=== PATIENT | male | born 1945 | race Caucasian/White ===

== ENCOUNTER → 2016-10-29 | Outpatient (REF) | payer OTHER ==
[2016-10-29 21:00] LABS: ALBUMIN 3.5 GM/DL (3.2-5.2); ALBUMIN/GLOBULIN RATIO 1.03 (1.00-1.93); ALKALINE PHOSPHATASE 56 U/L (45-117); ALT/SGPT 25 U/L (12-78); ANION GAP 7 MEQ/L (8-16); AST/SGOT 15 U/L (15-37); BILIRUBIN,TOTAL 0.4 MG/DL (0.2-1.0); BLOOD UREA NITROGEN 23 MG/DL (7-18); CALCIUM LEVEL 8.9 MG/DL (8.8-10.2); CARBON DIOXIDE LEVEL 30 MEQ/L (21-32); CHLORIDE LEVEL 108 MEQ/L (98-107); CREATININE FOR GFR 0.79 MG/DL (0.70-1.30); GLOMERULAR FILTRATION RATE > 60.0 (>42); GLUCOSE, FASTING 93 MG/DL (83-110); POTASSIUM SERUM 4.1 MEQ/L (3.5-5.1); SODIUM LEVEL 145 MEQ/L (136-145); TOTAL PROTEIN 6.9 GM/DL (6.4-8.2)
[2016-10-29 21:07] LABS: VITAMIN B12 LEVEL 400 PG/ML
[2016-10-29 21:10] LABS: MEAN CORPUSCULAR HEMOGLOBIN 32.3 pg (27.0-33.0); MEAN CORPUSCULAR HGB CONC 32.8 g/dl (32.0-36.5); MEAN CORPUSCULAR VOLUME 98.4 fl (80.0-96.0); RED CELL DISTRIBUTION WIDTH 12.6 % (11.5-14.5); WHITE BLOOD COUNT 4.6 K/mm3 (4.0-10.0)
[2016-10-29 21:12] LABS: FOLATE > 24.0 NG/ML
== END ==
LOC: M SFHCADAM 14:21
PROVIDERS: ATTEND Physician Assistant
DX: F03.91 Unspecified dementia, unspecified severity, with behavioral disturbance (principal); R63.4 Abnormal weight loss; E55.9 Vitamin D deficiency, unspecified; E53.8 Deficiency of other specified B group vitamins
CPT/HCPCS: 80053; 82306; 82607; 82746; 85027; G0463

== ENCOUNTER → 2018-01-10 | Outpatient (REF) | payer OTHER ==
[2018-01-10 16:00] LABS: HEMATOCRIT 38.6 % (42.0-52.0); HEMOGLOBIN 12.7 g/dl (13.5-17.5); MEAN CORPUSCULAR HEMOGLOBIN 32.2 pg (27.0-33.0); MEAN CORPUSCULAR HGB CONC 32.9 g/dl (32.0-36.5); MEAN CORPUSCULAR VOLUME 97.7 fl (80.0-96.0); PLATELET COUNT, AUTOMATED 211 10^3/uL (150-450); RED BLOOD COUNT 3.95 10^6/uL (4.30-6.10); RED CELL DISTRIBUTION WIDTH 12.4 % (11.5-14.5); WHITE BLOOD COUNT 5.6 10^3/uL (4.0-10.0)
[2018-01-10 16:06] LABS: ALBUMIN 3.4 GM/DL (3.2-5.2); ALBUMIN/GLOBULIN RATIO 1.06 (1.00-1.93); ALKALINE PHOSPHATASE 71 U/L (45-117); ALT/SGPT 29 U/L (12-78); ANION GAP 3 MEQ/L (8-16); AST/SGOT 50 U/L (7-37); BILIRUBIN,TOTAL 0.4 MG/DL (0.2-1.0); BLOOD UREA NITROGEN 20 MG/DL (7-18); CALCIUM LEVEL 8.8 MG/DL (8.8-10.2); CARBON DIOXIDE LEVEL 33 MEQ/L (21-32); CHLORIDE LEVEL 102 MEQ/L (98-107); CREATININE FOR GFR 1.09 MG/DL (0.70-1.30); FERRITIN 402 NG/ML (26-388); GLOMERULAR FILTRATION RATE > 60.0 (>42); GLUCOSE, FASTING 84 MG/DL (70-100); IRON (FE) 61 UG/DL (65-175); PERCENT SATURATION 29.5 % (19.7-50.0); POTASSIUM SERUM 4.6 MEQ/L (3.5-5.1); SODIUM LEVEL 138 MEQ/L (136-145); TOTAL IRON BINDING CAPACITY 207 UG/DL (250-450); TOTAL PROTEIN 6.6 GM/DL (6.4-8.2)
== END ==
LOC: M SFHCADAM 13:32
DX: D64.9 Anemia, unspecified (principal)
CPT/HCPCS: 83550

== ENCOUNTER 2018-06-01 11:52 | Inpatient (IN) | payer MEDICARE, OTHER ==
[~2018-06-01] VITALS: Ht 180.3 cm; Wt 58.0 kg
[2018-06-01] MEDS ORDERED: LORazepam 2 MG/ML VIAL (J2060) IV STA (13:08)
[2018-06-01 13:38] LABS: BASO % 0.1 % (0.0-1.0); EOS % 0.2 % (0.0-3.0); HEMATOCRIT 36.2 % (42.0-52.0); HEMOGLOBIN 11.8 g/dl (13.5-17.5); MEAN CORPUSCULAR HEMOGLOBIN 32.3 pg (27.0-33.0); MEAN CORPUSCULAR HGB CONC 32.6 g/dl (32.0-36.5); MEAN CORPUSCULAR VOLUME 99.2 fl (80.0-96.0); MONO # 0.9 10^3/uL (0.0-0.8); MONO % 5.6 % (0.0-5.0); NEUTROPHILS # 14.6 10^3/uL (1.8-7.7); NEUTROPHILS % 87.6 % (36.0-66.0); PLATELET COUNT, AUTOMATED 214 10^3/uL (150-450); RED BLOOD COUNT 3.65 10^6/uL (4.30-6.10); WHITE BLOOD COUNT 16.7 10^3/uL (4.0-10.0)
[2018-06-01 13:57] LABS: BLOOD UREA NITROGEN 22 MG/DL (7-18); CALCIUM LEVEL 7.9 MG/DL (8.8-10.2); CARBON DIOXIDE LEVEL 29 MEQ/L (21-32); CHLORIDE LEVEL 114 MEQ/L (98-107); CREATININE FOR GFR 0.88 MG/DL (0.70-1.30); GLOMERULAR FILTRATION RATE > 60.0 (>42); GLUCOSE, FASTING 132 MG/DL (70-100); SODIUM LEVEL 147 MEQ/L (136-145)
--- NOTE | 2018-06-01 14:07 | REP ---
CT of the brain without IV contrast: Comparison is 10/07/2014. There is no hemorrhage. There is no edema, mass effect or midline shift. The cortical stripe is unremarkable. The sulci and ventricles are dilated compatible with diffuse volume loss. This has progressed. There are mucosal cyst/polyps in the left maxillary sinus. Impression: There is no hemorrhage, acute infarct or mass. There is diffuse volume loss that has progressed. Cysts/polyps left maxillary sinus. Electronically Signed by Fran Aponte MD 06/01/2018 01:58 P
--- NOTE | 2018-06-01 14:09 | REP ---
Portable chest, 01:27 p.m., single AP supine view: Comparison is 08/21/2014. There is a subtle density in the left upper lobes , possibly a subsegmental infiltrate. The cardiac size is normal. The michelle, mediastinum, and skeletal structures are unremarkable. Impression: Probable subtle left upper lobe infiltrate. Electronically Signed by Fran Aponte MD 06/01/2018 02:01 P
--- NOTE | 2018-06-01 14:24 | REP ---
Right lower extremity deep vein duplex ultrasound: Deep vein duplex ultrasound performed for a popliteal vein to the common femoral vein. There is occlusive thrombus in the popliteal vein extending to the mid femoral vein. Impression: Occlusive thrombus as described. Electronically Signed by Fran Aponte MD 06/01/2018 02:16 P
[2018-06-01] MEDS ORDERED: cefTRIAXone SOD 2 GM in D5W MINI-BAG PLUS 50 ML IV ONE (14:30)
[2018-06-01] MEDS ORDERED: D-101000 PO (14:50)
[2018-06-01] MEDS ORDERED: MULTTAB61 PO (14:50)
[2018-06-01 14:52] LABS: INR 1.25; PROTHROMBIN TIME 15.9 SECONDS (12.1-14.4)
[2018-06-01 14:53] LABS: PARTIAL THROMBOPLASTIN TIME 35.2 SECONDS (25.4-37.6)
--- NOTE | 2018-06-01 15:02 | REP ---
CT of the chest without IV contrast: Comparison is the portable plain film study performed earlier today. There is an infiltrate in the superior segment of the left upper lobe. There are multifocal infiltrates in the right lower lobe. No pleural effusions. Lung crisostomo otherwise clear. There is no mediastinal adenopathy. The study is insensitive for hilar adenopathy in the absence of IV contrast. Thoracic aorta is unremarkable. Cardiac size normal. In the visualized upper abdomen. There are multiple gallbladder calculi. Impression: Bilateral infiltrates as described. Cholelithiasis. Electronically Signed by Fran Aponte MD 06/01/2018 02:54 P
[2018-06-01] MEDS ORDERED: APIXABAN 5 MG TAB (ELIQUIS) PO ONE (15:45)
--- NOTE | 2018-06-01 16:06 | ECGEPIP ---
Stationary ECG Study [facility] - ED Test Date: 2018-06-01 Pat Name: GANGA MON Department: Room: - Gender: M Industrial Eng: : 1945 Requested By: Pipo Reynoso Order Number: [id number] Reading MD: Earl Arora Measurements Intervals [place] Rate: 84 P: 69 [place]: 141 QRS: 55 QRSD: 77 T: 64 QT: 377 QTc: 448 Interpretive Statements SINUS RHYTHM Similar to tracing done 08-21-14 Electronically Signed On 06-01-2018 16:06:01 EDT by Earl Arora
[2018-06-01 16:15] VITALS: BP 127/67
[2018-06-01] MEDS ORDERED: ACETAMINOPHEN 650 MG SUPP PR ONE (16:15)
[2018-06-01] MEDS: NS 1,000 ML IV SCH (16:30)
--- NOTE | 2018-06-01 16:55 | HPEPDOC ---
General Date of Admission Jun 01, 2018 at 16:13 Chief Complaint The patient is a 73-year-old male who presented to the ER after they were sent in from PMDs office for agitation History of Present Illness Patient is a 73-year-old male with a PMHx of Progressive Dementia (Follows Neurology), HTN, BPH, Hx of Diverticulosis and Bladder Diverticulum who presented to the ER from their PMDs office because of worsening agitation. Patient is nonverbal at baseline and cannot contribute to his history. Patient initially came in with his caregiver was also the healthcare proxy, Vicky ([phone]). Vicky is a denominational member an acquaintance of the patient, however, she is unrelated to the patient. As per reports, patient generally is able to follow commands is nonverbal at baseline and is taken care of by Vicky. Vicky is noted that the patient has become increasingly agitated and has failed to follow commands. . She had gone to the primary care providers office for further evaluation and was directed to come to the emergency room. In the ER, patient received extensive imaging that revealed that he had a left lower extremity DVT as well as bilateral infiltrates on his CT scan of the chest. Patient was also noted to have a fever of 101.8F in the emergency room. Rectal Tylenol was provided. Hospitalist service was called for further evaluation and treatment. Information was mostly gathered from the medical record. Attempts were made to contact Vicky by phone was not present at the bedside. Home Medications Scheduled Cholecalciferol (Vitamin D3) (Vitamin D3) 1,000 Unit Capsule, 1,000 UNIT PO DAILY, (Reported) Multivitamin (Multivitamins) 1 Each Tablet, 1 TAB PO DAILY, (Reported) Allergies Coded Allergies: No Known Allergies (Unverified , 06/01/18) Past Medical History Medical History Progressive Dementia (Follows Neurology), HTN, BPH, Hx of Diverticulosis and Bladder Diverticulum Surgical History Rotator cuff tear on the right side in 2005 Colonoscopy in 2009 Reduction and internal fixation of left wrist fracture in the Left knee surgery in 1999 Family History - Unable to be obtained Social History - Based on medical records; patient is a nonsmoker and has not consumed alcohol in the last 2 years - Based on prior medical records; patient does not appear to be sexually active - Patient lives with healthcare proxy. Vicky - He is from his Review of Systems Other systems - Unable to be obtained Vital Signs - Vitals: BP 127/58, HR 82, RR 20, Sat 94%RA, Temp 101.8F - General: Lying in bed, does not appear to be in any distress, nonverbal, responds to painful stimuli - HEENT: NC, AT, Pupils reactive - CVS: RRR, +S1S2 - Lungs: Poor inspiratory effort bilaterally; discernible wheezing, rhonchi or rales - Abdomen: Soft, Non-distended, Non-tender - Extremities: R lower extremity swelling, No calf tenderness - Neuro: Appears to move all 4 extremities - Skin: There is an area of redness around the sacrum, however, it is blanchable; several areas on the patients body with scabs and multiple stages of healing Laboratory Data Labs 24H Laboratory Tests 2 06/01/18 13:17: Prothrombin Time 15.9H, Prothromb Time International Ratio 1.25, Activated Partial Thromboplast Time 35.2 06/01/18 13:22: Immature Granulocyte % (Auto) 0.5, White Blood Count 16.7H, Red Blood Count 3.65L, Hemoglobin 11.8L, Hematocrit 36.2L, Mean Corpuscular Volume 99.2H, Mean Corpuscular Hemoglobin 32.3, Mean Corpuscular Hemoglobin Concent 32.6, Red Cell Distribution Width 12.5, Platelet Count 214, Neutrophils (%) (Auto) 87.6H, Lymphocytes (%) (Auto) 6.0L, Monocytes (%) (Auto) 5.6H, Eosinophils (%) (Auto) 0.2, Basophils (%) (Auto) 0.1, Neutrophils # (Auto) 14.6H, Lymphocytes # (Auto) 1.0L, Monocytes # (Auto) 0.9H, Eosinophils # (Auto) 0.0, Basophils # (Auto) 0.0, Nucleated Red Blood Cells % (auto) 0.0, Anion Gap 4L, Glomerular Filtration Rate > 60.0, Lactic Acid Level 1.2, Calcium Level 7.9L 06/01/18 15:10: CBC/BMP Laboratory Tests 06/01/18 13:22 Red Blood Count 3.65 L, Mean Corpuscular Volume 99.2 H, Mean Corpuscular Hemoglobin 32.3, Mean Corpuscular Hemoglobin Concent 32.6, Red Cell Distribution Width 12.5, Neutrophils (%) (Auto) 87.6 H, Lymphocytes (%) (Auto) 6.0 L, Monocytes (%) (Auto) 5.6 H, Eosinophils (%) (Auto) 0.2, Basophils (%) (Auto) 0.1, Neutrophils # (Auto) 14.6 H, Lymphocytes # (Auto) 1.0 L, Monocytes # (Auto) 0.9 H, Eosinophils # (Auto) 0.0, Basophils # (Auto) 0.0 Microbiology Microbiology 06/01/18 Blood Culture, Received Pending 06/01/18 Blood Culture, Received Pending Plan / VTE VTE Prophylaxis Ordered?: Yes Plan Plan Acute metabolic encephalopathy - possibly 2/2 infection (See below); - Patient is brought to emergency room for agitation, which is changed from his baseline - Likely patients underlying dementia has had a component - Patient is only responsive to pain; appears to move all 4 extremities - CT head 06/01: There is no hemorrhage, acute infarct or mass. There is diffuse volume loss that has progressed. Cysts/polyps left maxillary sinus. - Will hold Seroquel / Aricept until patient is more awake / alert Leukocytosis / Fever - likely 2/2 infectious etiology - likely 2/2 pneumonia - possibly 2/2 community acquired pneumonia; possibly overlying cellulitis over R lower extremity - Patient was found to be febrile emergency room at 101.8F - Remains hemodynamically stable - Leukocytosis with neutrophil predominance; No lactic acidosis - will repeat - CXR 06/01: Probable subtle left upper lobe infiltrate. - CT chest 06/01: Bilateral infiltrates as described. Cholelithiasis. - Will start Ceftaroline (re: Coverage for MRSA / CAP / SSTI); will start IV fluid hydration Acute DVT - Physical with swelling of the right lower extremity - Hyper-coaguability workup has been started in the ER - Duplex US 06/01: There is occlusive thrombus in the right popliteal vein extending to the mid femoral vein. - Patient doesnt appear to be able to take anything by mouth at this point - Will start Lovenox therapeutic dosing by weight Hypernatremia - likely 2/2 poor oral intake - Will start IV fluid hydration with NS Macrocytic anemia - Hg appears to be at baseline - Will continue to monitor Cholelithiasis - Physical does not reveal any abdominal tenderness - Incidentally found on imaging - Will check liver profile Progressive Dementia - Follows Neurology - See above HTN - BP appears well controlled - Does not appear to be on any medications as an outpatient BPH - Does not appear to be on any medications as an outpatient Hx of Diverticulosis Bladder Diverticulum DVT prophylaxis - Will start full anticoagulation with Lovenox (re: DVT) Advanced Directives: Do Not Resuscitate (DNR) (Verified with Dr. Krueger), Trial form of Intubation (Verified with Dr. Krueger), Health Care Proxy (HCP) ([facility] [phone]) FAREED CHÁVEZ MD Jun 01, 2018 16:55
[2018-06-01] MEDS: ENOXAPARIN 60 MG/0.6 ML SYR (J1650) SC SCH (17:00)
[2018-06-01 17:16] LABS: ALBUMIN 2.4 GM/DL (3.2-5.2); ALT/SGPT 34 U/L (12-78); BILIRUBIN,DIRECT 0.1 MG/DL (0.0-0.2); BILIRUBIN,TOTAL 0.3 MG/DL (0.2-1.0); TOTAL PROTEIN 5.8 GM/DL (6.4-8.2)
[2018-06-01 18:15] VITALS: BP 127/67
[2018-06-01] MEDS: CEFTAROLINE FOSAMIL 600 MG in D5W MINI-BAG PLUS 50 ML IV SCH (22:13)
[2018-06-01 22:15] VITALS: BP 114/53
[2018-06-01] MEDS: ACETAMINOPHEN 650 MG SUPP PR PRN (22:39)
[2018-06-01 23:15] VITALS: BP 119/58
[2018-06-02] VITALS (8 sets, daily range): BP systolic 104–154; BP diastolic 53–85
[2018-06-02] MEDS: NS 1,000 ML IV SCH (04:38)
[2018-06-02] MEDS: ENOXAPARIN 60 MG/0.6 ML SYR (J1650) SC SCH ×2 (04:38→17:17)
[2018-06-02 06:42] LABS: BASO % 0.1 % (0.0-1.0); EOS % 0.1 % (0.0-3.0); HEMATOCRIT 37.8 % (42.0-52.0); HEMOGLOBIN 12.1 g/dl (13.5-17.5); LYMPH # 1.1 10^3/uL (1.5-4.5); LYMPH % 6.3 % (24.0-44.0); MEAN CORPUSCULAR HEMOGLOBIN 32.4 pg (27.0-33.0); MEAN CORPUSCULAR VOLUME 101.3 fl (80.0-96.0); MONO % 6.1 % (0.0-5.0); NEUTROPHILS # 14.6 10^3/uL (1.8-7.7); NEUTROPHILS % 86.9 % (36.0-66.0); PLATELET COUNT, AUTOMATED 215 10^3/uL (150-450); RED BLOOD COUNT 3.73 10^6/uL (4.30-6.10); WHITE BLOOD COUNT 16.8 10^3/uL (4.0-10.0)
[2018-06-02] MEDS: ACETAMINOPHEN 650 MG SUPP PR PRN ×3 (06:48→21:48)
[2018-06-02 07:03] LABS: ALBUMIN 2.3 GM/DL (3.2-5.2); ALT/SGPT 30 U/L (12-78); BILIRUBIN,TOTAL 0.5 MG/DL (0.2-1.0); BLOOD UREA NITROGEN 17 MG/DL (7-18); CALCIUM LEVEL 8.2 MG/DL (8.8-10.2); CARBON DIOXIDE LEVEL 28 MEQ/L (21-32); CHLORIDE LEVEL 117 MEQ/L (98-107); CREATININE FOR GFR 1.01 MG/DL (0.70-1.30); GLOMERULAR FILTRATION RATE > 60.0 (>42); GLUCOSE, FASTING 108 MG/DL (70-100); MAGNESIUM LEVEL 2.2 MG/DL (1.8-2.4); POTASSIUM SERUM 3.8 MEQ/L (3.5-5.1); SODIUM LEVEL 150 MEQ/L (136-145); TOTAL PROTEIN 6.4 GM/DL (6.4-8.2)
[2018-06-02] MEDS: CEFTAROLINE FOSAMIL 600 MG in D5W MINI-BAG PLUS 50 ML IV SCH ×2 (09:14→21:44)
--- NOTE | 2018-06-02 09:29 | IPNPDOC ---
Subjective Date Seen The patient was seen on 06/02/18. Subjective Chief Complaint/HPI Nursing this morning reports persistent fever despite Tyl suppository. Pt is nonverbal and is not interactive with staff or nursing. General: Reports: ROS Unobtainable Objective Physical Examination General Exam: Positive: No Acute Distress; Negative: Alert, Cooperative ENT Exam: Positive: Mucous membr. moist/pink Neck Exam: Positive: Supple Chest Exam: Positive: Diminished; Negative: Rales (fibrot), Rhonchi, Wheezing Heart Exam: Positive: Rate Normal, Normal S1 Abdomen Exam: Positive: Normal bowel sounds, Soft; Negative: Tenderness (no perceivable tenderness with palpation.) Extremity Exam: Positive: Edema (RLE edema, mild erythema, no edema of LLE) Neuro Exam: Negative: Normal Gait, Normal Speech Psych Exam: Negative: Mental status NL, Mood NL Assessment /Plan Problems (1) Sepsis Status: Acute Response to Treatment: Worse Discussed With: Nurse, Patient Problem Specific Plan: Monitor Clinically, Repeat Labs Problem Text: Febrile with Tmax 102.6, WBC 16.8, stable c/w yest, will obtain CRP. Lactic acid on admission 1.0. On IV fluid, IV Ceftaroline D2. (2) Deep vein thrombosis (DVT) of right lower extremity Status: Acute Problem Specific Plan: Monitor Clinically Problem Text: hypercoag work up pending, US RLE + DVT, started on therapeutic Lovenox dosing on admission. (3) Bilateral pneumonia Status: Acute Problem Specific Plan: Monitor Clinically, Repeat Labs Problem Text: See above, IV ceftaroline (4) Hypernatremia Status: Acute Problem Specific Plan: Monitor Clinically Problem Text: pt not taking anything PO, I suspect this is contributing to his elevated Na, he has IVF ordered, cont to monitor. (5) Alzheimer's dementia Status: Chronic Problem Specific Plan: Monitor Clinically Problem Text: Note from Neuro 01/08 suggests significant progression, including progressive aphasia, caregiver also c/o sedation, drowsiness. (6) Cellulitis of right lower extremity Status: Acute Problem Text: Pt does have erythema, however I am not convinced that this is more related to swelling from DVT vs cellulitis, monitor for progression. (7) Acute metabolic encephalopathy Status: Acute Response to Treatment: Stable Problem Specific Plan: Monitor Clinically Problem Text: secondary to sepsis Plan/VTE VTE Prophylaxis Ordered?: Yes Disposition Has MOLST, DNR, otherwise aggressive measures including PEG, intubation, halfway IVF VS, I&O, 24H, Fishbone Vital Signs/I&O Vital Signs Date Time Temp Pulse Resp B/P (MAP) Pulse Ox O2 Delivery O2 Flow Rate FiO2 06/02/18 08:16 101.9 06/02/18 08:00 82 18 128/53 (78) 95 06/01/18 17:52 Room Air I&O- Last 24 Hours up to 6 AM 06/02/18 06:00 Intake Total 975 ml Balance 975 ml Laboratory Data 24H LABS Laboratory Tests 2 06/01/18 13:17: Prothrombin Time 15.9H, Prothromb Time International Ratio 1.25, Activated Partial Thromboplast Time 35.2 06/01/18 13:22: Immature Granulocyte % (Auto) 0.5, White Blood Count 16.7H, Red Blood Count 3.65L, Hemoglobin 11.8L, Hematocrit 36.2L, Mean Corpuscular Volume 99.2H, Mean Corpuscular Hemoglobin 32.3, Mean Corpuscular Hemoglobin Concent 32.6, Red Cell Distribution Width 12.5, Platelet Count 214, Neutrophils (%) (Auto) 87.6H, Ly mphocytes (%) (Auto) 6.0L, Monocytes (%) (Auto) 5.6H, Eosinophils (%) (Auto) 0.2, Basophils (%) (Auto) 0.1, Neutrophils # (Auto) 14.6H, Lymphocytes # (Auto) 1.0L, Monocytes # (Auto) 0.9H, Eosinophils # (Auto) 0.0, Basophils # (Auto) 0.0, Nucleated Red Blood Cells % (auto) 0.0, Anion Gap 4L, Glomerular Filtration Rate > 60.0, Lactic Acid Level 1.2, Calcium Level 7.9L, Aspartate Amino Transf (AST/SGOT) 43H, Alanine Aminotransferase (ALT/SGPT) 34, Alkaline Phosphatase 58, Total Bilirubin 0.3, Direct Bilirubin 0.1, Total Protein 5.8L, Albumin 2.4L, Albumin/Globulin Ratio 0.71L 06/01/18 15:10: 06/01/18 17:04: Lactic Acid Level 1.0 06/02/18 06:20: Immature Granulocyte % (Auto) 0.5, White Blood Count 16.8H, Red Blood Count 3.73L, Hemoglobin 12.1L, Hematocrit 37.8L, Mean Corpuscular Volume 101.3H, Mean Corpuscular Hemoglobin 32.4, Mean Corpuscular Hemoglobin Concent 32.0, Red Cell Distribution Width 12.7, Platelet Count 215, Neutrophils (%) (Auto) 86.9H, Lymphocytes (%) (Auto) 6.3L, Monocytes (%) (Auto) 6.1H, Eosinophils (%) (Auto) 0.1, Basophils (%) (Auto) 0.1, Neutrophils # (Auto) 14.6H, Lymphocytes # (Auto) 1.1L, Monocytes # (Auto) 1.0H, Eosinophils # (Auto) 0.0, Basophils # (Auto) 0.0, Nucleated Red Blood Cells % (auto) 0.0, Anion Gap 5L, Glomerular Filtration Rate > 60.0, Blood Urea Nitrogen 17, Creatinine 1.01, Sodium Level 150H, Potassium Level 3.8, Chloride Level 117H, Carbon Dioxide Level 28, Calcium Level 8.2L, Aspartate Amino Transf (AST/SGOT) 31, Alanine Aminotransferase (ALT/SGPT) 30, Alkaline Phosphatase 47, Total Bilirubin 0.5#, Total Protein 6.4, Albumin 2.3L, Magnesium Level 2.2, Albumin/Globulin Ratio 0.56L CBC/BMP Laboratory Tests 06/01/18 13:22 Red Blood Count 3.65 L, Mean Corpuscular Volume 99.2 H, Mean Corpuscular Hemoglobin 32.3, Mean Corpuscular Hemoglobin Concent 32.6, Red Cell Distribution Width 12.5, Neutrophils (%) (Auto) 87.6 H, Lymphocytes (%) (Auto) 6.0 L, Monocytes (%) (Auto) 5.6 H, Eosinophils (%) (Auto) 0.2, Basophils (%) (Auto) 0.1, Neutrophils # (Auto) 14.6 H, Lymphocytes # (Auto) 1.0 L, Monocytes # (Auto) 0.9 H, Eosinophils # (Auto) 0.0, Basophils # (Auto) 0.0 06/02/18 06:20 Red Blood Count 3.73 L, Mean Corpuscular Volume 101.3 H, Mean Corpuscular Hemoglobin 32.4, Mean Corpuscular Hemoglobin Concent 32.0, Red Cell Distribution Width 12.7, Neutrophils (%) (Auto) 86.9 H, Lymphocytes (%) (Auto) 6.3 L, Monocytes (%) (Auto) 6.1 H, Eosinophils (%) (Auto) 0.1, Basophils (%) (Auto) 0.1, Neutrophils # (Auto) 14.6 H, Lymphocytes # (Auto) 1.1 L, Monocytes # (Auto) 1.0 H, Eosinophils # (Auto) 0.0, Basophils # (Auto) 0.0, Calcium Level 8.2 L, Aspartate Amino Transf (AST/SGOT) 31, Alanine Aminotransferase (ALT/SGPT) 30, Alkaline Phosphatase 47, Total Bilirubin 0.5 #, Total Protein 6.4, Albumin 2.3 L Microbiology Microbiology 06/01/18 Blood Culture, Received Pending 06/01/18 Blood Culture - Preliminary, Resulted 06/01/18 Stool Occult Blood (LAURA) - Final, Complete 06/01/18 MRSA Screen, Received Pending JAVAD ESTRELLA PA-C Jun 02, 2018 09:29
[2018-06-02 10:06] LABS: INFLUENZA A AMPLIFICATION NEGATIVE (NEGATIVE); INFLUENZA B AMPLIFICATION NEGATIVE (NEGATIVE)
[2018-06-03 04:00] VITALS: BP 102/55
[2018-06-03] MEDS: ENOXAPARIN 60 MG/0.6 ML SYR (J1650) SC SCH ×2 (04:24→18:35)
[2018-06-03 05:52] LABS: BASO % 0.1 % (0.0-1.0); EOS % 0.1 % (0.0-3.0); HEMATOCRIT 35.1 % (42.0-52.0); HEMOGLOBIN 11.1 g/dl (13.5-17.5); LYMPH # 0.7 10^3/uL (1.5-4.5); LYMPH % 5.3 % (24.0-44.0); MEAN CORPUSCULAR HEMOGLOBIN 31.9 pg (27.0-33.0); MEAN CORPUSCULAR HGB CONC 31.6 g/dl (32.0-36.5); MEAN CORPUSCULAR VOLUME 100.9 fl (80.0-96.0); MONO # 0.9 10^3/uL (0.0-0.8); MONO % 6.5 % (0.0-5.0); NEUTROPHILS # 12.2 10^3/uL (1.8-7.7); NEUTROPHILS % 87.4 % (36.0-66.0); PLATELET COUNT, AUTOMATED 204 10^3/uL (150-450); RED BLOOD COUNT 3.48 10^6/uL (4.30-6.10)
[2018-06-03 06:16] LABS: ALBUMIN 1.9 GM/DL (3.2-5.2); ALT/SGPT 25 U/L (12-78); BILIRUBIN,TOTAL 0.6 MG/DL (0.2-1.0); BLOOD UREA NITROGEN 17 MG/DL (7-18); CALCIUM LEVEL 7.8 MG/DL (8.8-10.2); CARBON DIOXIDE LEVEL 28 MEQ/L (21-32); CHLORIDE LEVEL 114 MEQ/L (98-107); CREATININE FOR GFR 0.92 MG/DL (0.70-1.30); GLOMERULAR FILTRATION RATE > 60.0 (>42); GLUCOSE, FASTING 92 MG/DL (70-100); MAGNESIUM LEVEL 2.2 MG/DL (1.8-2.4); POTASSIUM SERUM 3.7 MEQ/L (3.5-5.1); SODIUM LEVEL 149 MEQ/L (136-145); TOTAL PROTEIN 5.7 GM/DL (6.4-8.2)
[2018-06-03 08:00] VITALS: BP 101/39
[2018-06-03] MEDS: CEFTAROLINE FOSAMIL 600 MG in D5W MINI-BAG PLUS 50 ML IV SCH ×2 (08:37→20:32)
[2018-06-03] MEDS: KCL 20MEQ IN 0.45NS 1000ML 1,000 ML IV SCH ×2 (10:22→20:27)
--- NOTE | 2018-06-03 11:30 | IPN ---
DATE: 06/03/2018 Hiram is seen in the progressive care unit (PCU). He is unresponsive. Admitted with pneumonia and cellulitis. Physical Exam: T-Max 100. Current temperature 99.7. Blood pressure 100/39. General Appearance: Frail, elderly, lying in bed unresponsive. Lungs: Scattered rhonchi. Heart: Regular rhythm. Abdomen: Soft. Nontender. Trace peripheral edema. Right lower extremity is erythematous and mildly indurated. Impression: 1. Sepsis secondary to bilateral pneumonia. He is on Ceftaroline. He has positive blood culture for Staphylococcus. Ceftaroline should cover this. It is day 3 for this. 2. Deep vein thrombosis (DVT) of the leg. On Lovenox. Not taking by mouth currently. If he wakes up enough to take by mouth, would start him on a direct-acting oral anticoagulant (DOAC). 3. Hypernatremia. Sodium is stable, but elevated. I have ordered some 1/2 normal saline. Daily labs have been ordered. Poor by mouth intake is contributing. 4. Alzheimer disease. This is progressive. I will attempt to speak to his health care proxy today for consideration of comfort measures only ([employer]) status.
[2018-06-03 11:58] VITALS: BP 103/48
[2018-06-03 16:00] VITALS: BP 98/58
[2018-06-03 20:00] VITALS: BP 111/53
[2018-06-03 23:59] VITALS: BP 96/54
[2018-06-04 04:00] VITALS: BP 112/56
[2018-06-04] MEDS: ENOXAPARIN 60 MG/0.6 ML SYR (J1650) SC SCH ×2 (04:12→18:06)
[2018-06-04 05:57] LABS: BASO % 0.1 % (0.0-1.0); EOS % 0.2 % (0.0-3.0); HEMATOCRIT 31.5 % (42.0-52.0); HEMOGLOBIN 10.1 g/dl (13.5-17.5); LYMPH # 0.8 10^3/uL (1.5-4.5); LYMPH % 6.4 % (24.0-44.0); MEAN CORPUSCULAR HEMOGLOBIN 31.7 pg (27.0-33.0); MEAN CORPUSCULAR HGB CONC 32.1 g/dl (32.0-36.5); MEAN CORPUSCULAR VOLUME 98.7 fl (80.0-96.0); MONO # 0.7 10^3/uL (0.0-0.8); MONO % 5.5 % (0.0-5.0); NEUTROPHILS # 10.9 10^3/uL (1.8-7.7); NEUTROPHILS % 87.4 % (36.0-66.0); PLATELET COUNT, AUTOMATED 226 10^3/uL (150-450); RED BLOOD COUNT 3.19 10^6/uL (4.30-6.10); WHITE BLOOD COUNT 12.5 10^3/uL (4.0-10.0)
[2018-06-04 06:16] LABS: ALBUMIN 1.6 GM/DL (3.2-5.2); ALT/SGPT 23 U/L (12-78); BILIRUBIN,TOTAL 0.3 MG/DL (0.2-1.0); BLOOD UREA NITROGEN 22 MG/DL (7-18); CALCIUM LEVEL 7.5 MG/DL (8.8-10.2); CARBON DIOXIDE LEVEL 28 MEQ/L (21-32); CHLORIDE LEVEL 114 MEQ/L (98-107); CREATININE FOR GFR 0.93 MG/DL (0.70-1.30); GLOMERULAR FILTRATION RATE > 60.0 (>42); GLUCOSE, FASTING 137 MG/DL (70-100); MAGNESIUM LEVEL 2.1 MG/DL (1.8-2.4); POTASSIUM SERUM 4.1 MEQ/L (3.5-5.1); SODIUM LEVEL 146 MEQ/L (136-145); TOTAL PROTEIN 5.4 GM/DL (6.4-8.2)
[2018-06-04] MEDS: KCL 20MEQ IN 0.45NS 1000ML 1,000 ML IV SCH ×2 (07:14→18:06)
[2018-06-04 08:00] VITALS: BP 96/47
[2018-06-04] MEDS: CEFTAROLINE FOSAMIL 600 MG in D5W MINI-BAG PLUS 50 ML IV SCH ×2 (08:55→20:26)
[2018-06-04] MEDS: ACETAMINOPHEN 650 MG SUPP PR PRN (08:56)
[2018-06-04 10:18] LABS: CARDIOLIPIN IGA ANTIBODY <9 APL U/mL (0-11); CARDIOLIPIN IGG ANTIBODY <9 GPL U/mL (0-14); CARDIOLIPIN IGM ANTIBODY <9 MPL U/mL (0-12); PHOSPHOLIPIDS LEVEL 149 mg/dL (150-250)
[2018-06-04 11:30] VITALS: BP 91/52
[2018-06-04 14:00] VITALS: BP 96/50
--- NOTE | 2018-06-04 16:10 | IPN ---
DATE: 06/04/2018 Hiram was seen in progressive care unit (PCU). I moved him up to the floor today. He has cellulitis and pneumonia. He again was unresponsive, though nursing staff says that yesterday he woke up enough to be fed lunch and dinner, it is not the case currently. I asked to be called when family came so we could discuss whether they want to continue aggressive measures or consider comfort measures only status, but I have not had any calls so I do not think they have come in. PHYSICAL EXAMINATION: Unresponsive. Maximum temperature (T-max) 100.2, blood pressure 91/52. General appearance: He is lying in a curled up position with contractures. Lungs: Clear. Heart: Regular rhythm. Abdomen: Soft, nontender. Trace peripheral edema. Erythema right lower extremity regressed from yesterday. LABORATORY DATA: Sodium is down to 146, white count is down to 12.5. IMPRESSION: 1. Pneumonia/cellulitis. On ceftaroline intravenously which we will continue. 2. Staphylococcus bacteremia. Should be covered well by the ceftaroline. 3. Deep venous thrombosis (DVT) of the leg. He is on Lovenox. We have not started an oral anticoagulant and was not sure he was going to cooperate with this. Is still unsure whether he could reliably take anything by mouth. If he stays awake for more than just to be fed, I would recommend stopping Lovenox and starting a direct-acting oral anticoagulant (DOAC). 4. Hypernatremia, improved with half normal saline. Hopefully this will be stopped tomorrow. 5. Alzheimer's disease, progressive. Would like to talk about advanced directives with family but they did not come in over the weekend.
[2018-06-04 22:00] VITALS: BP 113/59
[2018-06-05] MEDS: KCL 20MEQ IN 0.45NS 1000ML 1,000 ML IV SCH (04:55)
[2018-06-05] MEDS: ENOXAPARIN 60 MG/0.6 ML SYR (J1650) SC SCH ×2 (05:00→17:01)
[2018-06-05 05:55] LABS: BASO % 0.1 % (0.0-1.0); EOS # 0.1 10^3/uL (0.0-0.50); EOS % 0.6 % (0.0-3.0); HEMATOCRIT 30.7 % (42.0-52.0); HEMOGLOBIN 9.7 g/dl (13.5-17.5); LYMPH # 0.7 10^3/uL (1.5-4.5); LYMPH % 7.4 % (24.0-44.0); MEAN CORPUSCULAR HGB CONC 31.6 g/dl (32.0-36.5); MEAN CORPUSCULAR VOLUME 98.1 fl (80.0-96.0); MONO # 0.7 10^3/uL (0.0-0.8); MONO % 7.1 % (0.0-5.0); NEUTROPHILS # 8.4 10^3/uL (1.8-7.7); NEUTROPHILS % 84.4 % (36.0-66.0); PLATELET COUNT, AUTOMATED 211 10^3/uL (150-450); RED BLOOD COUNT 3.13 10^6/uL (4.30-6.10); WHITE BLOOD COUNT 9.9 10^3/uL (4.0-10.0)
[2018-06-05 06:00] VITALS: BP 109/52
[2018-06-05 06:16] LABS: ALBUMIN 1.6 GM/DL (3.2-5.2); ALT/SGPT 42 U/L (12-78); BILIRUBIN,TOTAL 0.3 MG/DL (0.2-1.0); BLOOD UREA NITROGEN 18 MG/DL (7-18); CALCIUM LEVEL 7.4 MG/DL (8.8-10.2); CARBON DIOXIDE LEVEL 26 MEQ/L (21-32); CHLORIDE LEVEL 109 MEQ/L (98-107); GLOMERULAR FILTRATION RATE > 60.0 (>42); GLUCOSE, FASTING 111 MG/DL (70-100); MAGNESIUM LEVEL 1.9 MG/DL (1.8-2.4); POTASSIUM SERUM 4.3 MEQ/L (3.5-5.1); SODIUM LEVEL 139 MEQ/L (136-145); TOTAL PROTEIN 5.3 GM/DL (6.4-8.2)
[2018-06-05] MEDS: CEFTAROLINE FOSAMIL 600 MG in D5W MINI-BAG PLUS 50 ML IV SCH (08:59)
--- NOTE | 2018-06-05 09:40 | IPNPDOC ---
Subjective Date Seen The patient was seen on 06/05/18. Subjective Chief Complaint/HPI metabolic encephalopathy General: Reports: ROS Unobtainable Objective Physical Examination General Exam: Positive: Alert, Cooperative, No Acute Distress ENT Exam: Positive: Mucous membr. moist/pink Neck Exam: Positive: Supple Chest Exam: Positive: Clear to auscultation; Negative: Rales, Rhonchi, Wheezing Heart Exam: Positive: Rate Normal, Normal S1 Abdomen Exam: Positive: Normal bowel sounds, Soft; Negative: Tenderness (no perceivable tenderness with palpation.) Extremity Exam: Positive: Edema (RLE edema, mild erythema, no edema of LLE) Neuro Exam: Negative: Normal Gait, Normal Speech Psych Exam: Positive: Other (non-verbal, cooperative); Negative: Mental status NL, Mood NL Assessment /Plan Problems (1) Sepsis Status: Acute Response to Treatment: Worse Discussed With: Nurse, Patient Problem Specific Plan: Monitor Clinically, Repeat Labs Problem Text: 06/05/18: Transition to ceftriaxone MSSA on bl cx x 1. WBC stable at 9,000. Afebrile. Echo ordered. Febrile with Tmax 102.6, WBC 16.8, stable c/w yest, will obtain CRP. Lactic acid on admission 1.0. On IV fluid, IV Ceftaroline D2. (2) Deep vein thrombosis (DVT) of right lower extremity Status: Acute Problem Specific Plan: Monitor Clinically Problem Text: 06/05/18: Currently treated with Lovenox. DOAC on hold due to poor cognition and minimal po intake. Tolerating breakfast this am. hypercoag work up pending, US RLE + DVT, started on therapeutic Lovenox dosing on admission. (3) Bilateral pneumonia Status: Acute Problem Specific Plan: Monitor Clinically, Repeat Labs Problem Text: See above, IV ceftaroline (4) Alzheimer's dementia Status: Chronic Problem Specific Plan: Monitor Clinically Problem Text: Note from Neuro 01/08 suggests significant progression, including progressive aphasia, caregiver also c/o sedation, drowsiness. (5) Acute metabolic encephalopathy Status: Acute Response to Treatment: Stable Problem Specific Plan: Monitor Clinically Problem Text: 06/05/18: awake, cooperative this am, eating breakfast assisted by nursing staff. secondary to sepsis (6) Hypernatremia Status: Resolved Problem Specific Plan: Monitor Clinically Problem Text: pt not taking anything PO, I suspect this is contributing to his elevated Na, he has IVF ordered, cont to monitor. Plan/VTE VTE Prophylaxis Ordered?: Yes VS, I&O, 24H, [place] Vital Signs/I&O Vital Signs Date Time Temp Pulse Resp B/P (MAP) Pulse Ox O2 Delivery O2 Flow Rate FiO2 06/05/18 06:00 97.4 65 18 109/52 (71) 98 06/01/18 17:52 Room Air I&O- Last 24 Hours up to 6 AM 06/05/18 05:59 Intake Total 1450 ml Output Total 0 ml Balance 1450 ml Laboratory Data 24H LABS Laboratory Tests 2 06/05/18 05:40: Immature Granulocyte % (Auto) 0.4, White Blood Count 9.9, Red Blood Count 3.13L, Hemoglobin 9.7L, Hematocrit 30.7L, Mean Corpuscular Volume 98.1H, Mean Corpuscular Hemoglobin 31.0, Mean Corpuscular Hemoglobin Concent 31.6L, Red Cell Distribution Width 12.6, Platelet Count 211, Neutrophils (%) (Auto) 84.4H, L ymphocytes (%) (Auto) 7.4L, Monocytes (%) (Auto) 7.1H, Eosinophils (%) (Auto) 0.6, Basophils (%) (Auto) 0.1, Neutrophils # (Auto) 8.4H, Lymphocytes # (Auto) 0.7L, Monocytes # (Auto) 0.7, Eosinophils # (Auto) 0.1, Basophils # (Auto) 0.0, Nucleated Red Blood Cells % (auto) 0.0, Anion Gap 4L, Glomerular Filtration Rate > 60.0, Blood Urea Nitrogen 18, Creatinine 0.80, Sodium Level 139, Potassium Level 4.3, Chloride Level 109H, Carbon Dioxide Level 26, Calcium Level 7.4L, Aspartate Amino Transf (AST/SGOT) 50H, Alanine Aminotransferase (ALT/SGPT) 42, Alkaline Phosphatase 43L, Total Bilirubin 0.3, Total Protein 5.3L, Albumin 1.6L, Magnesium Level 1.9, Albumin/Globulin Ratio 0.43L CBC/BMP Laboratory Tests 06/05/18 05:40 Red Blood Count 3.13 L, Mean Corpuscular Volume 98.1 H, Mean Corpuscular Hemoglobin 31.0, Mean Corpuscular Hemoglobin Concent 31.6 L, Red Cell Distribution Width 12.6, Neutrophils (%) (Auto) 84.4 H, Lymphocytes (%) (Auto) 7.4 L, Monocytes (%) (Auto) 7.1 H, Eosinophils (%) (Auto) 0.6, Basophils (%) (Auto) 0.1, Neutrophils # (Auto) 8.4 H, Lymphocytes # (Auto) 0.7 L, Monocytes # (Auto) 0.7, Eosinophils # (Auto) 0.1, Basophils # (Auto) 0.0, Calcium Level 7.4 L, Aspartate Amino Transf (AST/SGOT) 50 H, Alanine Aminotransferase (ALT/SGPT) 42, Alkaline Phosphatase 43 L, Total Bilirubin 0.3, Total Protein 5.3 L, Albumin 1.6 L Microbiology Microbiology 06/01/18 Blood Culture - Preliminary, Resulted No Growth after 72 hours. All specime... 06/01/18 Blood Culture - Final, Complete Staphylococcus Aureus 06/03/18 Stool Occult Blood (LAURA) - Final, Complete 06/02/18 Stool Occult Blood (LAURA) - Final, Complete 06/01/18 Stool Occult Blood (LAURA) - Final, Complete 06/01/18 MRSA Screen - Final, Complete Attending Note Attending Note Patient seen and examined. He drinks and eats when offered but not spontaneously. He will need active assist with feeding and water. Agree with plan and findings as documented by Freedom Ware. Bobbi Ware Jun 05, 2018 09:40 Arsalan Banks MD Jun 05, 2018 17:32
[2018-06-05 14:00] VITALS: BP 135/67
[2018-06-05 14:47] LABS: ANTI THROMBIN 3 ANTIGEN IMMUNO 77 % (72-124); ANTI THROMBIN 3 FUNCT ACTIVITY 80 % (75-135); PROTEIN C FUNCTIONAL ACTIVITY 73 % (73-180); PROTEIN S FUNCTIONAL ACTIVITY 82 % (63-140)
[2018-06-05] MEDS: cefTRIAXone SOD 1 GM in D5W MINI-BAG PLUS 50 ML IV SCH (21:00)
[2018-06-05 22:00] VITALS: BP 121/53
[2018-06-06] MEDS: ENOXAPARIN 60 MG/0.6 ML SYR (J1650) SC SCH (05:10)
[2018-06-06 06:00] VITALS: BP 141/66
[2018-06-06 06:42] LABS: BASO % 0.1 % (0.0-1.0); EOS % 0.3 % (0.0-3.0); HEMATOCRIT 29.6 % (42.0-52.0); HEMOGLOBIN 9.7 g/dl (13.5-17.5); LYMPH # 0.6 10^3/uL (1.5-4.5); LYMPH % 6.9 % (24.0-44.0); MEAN CORPUSCULAR HEMOGLOBIN 31.2 pg (27.0-33.0); MEAN CORPUSCULAR HGB CONC 32.8 g/dl (32.0-36.5); MEAN CORPUSCULAR VOLUME 95.2 fl (80.0-96.0); MONO # 0.7 10^3/uL (0.0-0.8); MONO % 7.2 % (0.0-5.0); NEUTROPHILS % 85.2 % (36.0-66.0); PLATELET COUNT, AUTOMATED 216 10^3/uL (150-450); RED BLOOD COUNT 3.11 10^6/uL (4.30-6.10); WHITE BLOOD COUNT 9.3 10^3/uL (4.0-10.0)
[2018-06-06 06:57] LABS: ALBUMIN 1.6 GM/DL (3.2-5.2); ALT/SGPT 54 U/L (12-78); BILIRUBIN,TOTAL 0.4 MG/DL (0.2-1.0); BLOOD UREA NITROGEN 12 MG/DL (7-18); CALCIUM LEVEL 7.6 MG/DL (8.8-10.2); CARBON DIOXIDE LEVEL 26 MEQ/L (21-32); CHLORIDE LEVEL 103 MEQ/L (98-107); CREATININE FOR GFR 0.75 MG/DL (0.70-1.30); GLOMERULAR FILTRATION RATE > 60.0 (>42); GLUCOSE, FASTING 95 MG/DL (70-100); POTASSIUM SERUM 3.6 MEQ/L (3.5-5.1); SODIUM LEVEL 136 MEQ/L (136-145); TOTAL PROTEIN 5.4 GM/DL (6.4-8.2)
--- NOTE | 2018-06-06 08:52 | IPNPDOC ---
Subjective Date Seen The patient was seen on 06/06/18. Subjective Chief Complaint/HPI no changes. PT recommended extended service to work with caregivers. General: Reports: ROS Unobtainable Objective Physical Examination General Exam: Positive: Alert, Cooperative, No Acute Distress ENT Exam: Positive: Mucous membr. moist/pink Neck Exam: Positive: Supple Chest Exam: Positive: Clear to auscultation; Negative: Rales, Rhonchi, Wheezing Heart Exam: Positive: Rate Normal, Normal S1 Abdomen Exam: Positive: Normal bowel sounds, Soft; Negative: Tenderness (no perceivable tenderness with palpation.) Extremity Exam: Positive: Edema (RLE edema, mild erythema, no edema of LLE) Neuro Exam: Negative: Normal Gait, Normal Speech Psych Exam: Positive: Other (non-verbal, cooperative); Negative: Mental status NL, Mood NL Assessment /Plan Problems (1) Sepsis Status: Acute Response to Treatment: Worse Discussed With: Nurse, Patient Problem Specific Plan: Monitor Clinically, Repeat Labs Problem Text: 06/06/18: day #2 ceftriaxone. Echo pending 06/05/18: Transition to ceftriaxone MSSA on bl cx x 1. WBC stable at 9,000. Afebrile. Echo ordered. Febrile with Tmax 102.6, WBC 16.8, stable c/w yest, will obtain CRP. Lactic acid on admission 1.0. On IV fluid, IV Ceftaroline D2. (2) Deep vein thrombosis (DVT) of right lower extremity Status: Acute Problem Specific Plan: Monitor Clinically Problem Text: 06/06/18: transitioned to xarelto po today. passed ST eval. 06/05/18: Currently treated with Lovenox. DOAC on hold due to poor cognition and minimal po intake. Tolerating breakfast this am. hypercoag work up pending, US RLE + DVT, started on therapeutic Lovenox dosing on admission. (3) Bilateral pneumonia Status: Acute Problem Specific Plan: Monitor Clinically, Repeat Labs Problem Text: See above (4) Alzheimer's dementia Status: Chronic Problem Specific Plan: Monitor Clinically Problem Text: Note from Neuro 01/08 suggests significant progression, including progressive aphasia, caregiver also c/o sedation, drowsiness. (5) Acute metabolic encephalopathy Status: Acute Response to Treatment: Stable Problem Specific Plan: Monitor Clinically Problem Text: 06/05/18: awake, cooperative this am, eating breakfast assisted by nursing staff. secondary to sepsis (6) Hypernatremia Status: Resolved Problem Specific Plan: Monitor Clinically Problem Text: pt not taking anything PO, I suspect this is contributing to his elevated Na, he has IVF ordered, cont to monitor. (7) Protein-calorie malnutrition, moderate Status: Chronic Response to Treatment: Stable Problem Text: Low albumin likely product of reduced calorie intake resulting from dementia. Plan/VTE VTE Prophylaxis Ordered?: Yes VS, I&O, 24H, Fishbone Vital Signs/I&O Vital Signs Date Time Temp Pulse Resp B/P (MAP) Pulse Ox O2 Delivery O2 Flow Rate FiO2 06/06/18 06:00 98.0 81 20 141/66 (91) 94 06/01/18 17:52 Room Air I&O- Last 24 Hours up to 6 AM 06/06/18 06:00 Intake Total 1610 ml Output Total 0 ml Balance 1610 ml Laboratory Data 24H LABS Laboratory Tests 2 06/06/18 06:15: Immature Granulocyte % (Auto) 0.3, White Blood Count 9.3, Red Blood Count 3.11L, Hemoglobin 9.7L, Hematocrit 29.6L, Mean Corpuscular Volume 95.2, Mean Corpuscular Hemoglobin 31.2, Mean Corpuscular Hemoglobin Concent 32.8, Red Cell Distribution Width 12.2, Platelet Count 216, Neutrophils (%) (Auto) 85.2H, L ymphocytes (%) (Auto) 6.9L, Monocytes (%) (Auto) 7.2H, Eosinophils (%) (Auto) 0.3, Basophils (%) (Auto) 0.1, Neutrophils # (Auto) 8.0H, Lymphocytes # (Auto) 0.6L, Monocytes # (Auto) 0.7, Eosinophils # (Auto) 0.0, Basophils # (Auto) 0.0, Nucleated Red Blood Cells % (auto) 0.0, Anion Gap 7L, Glomerular Filtration Rate > 60.0, Blood Urea Nitrogen 12, Creatinine 0.75, Sodium Level 136, Potassium Level 3.6, Chloride Level 103, Carbon Dioxide Level 26, Calcium Level 7.6L, Aspartate Amino Transf (AST/SGOT) 57H, Alanine Aminotransferase (ALT/SGPT) 54, Alkaline Phosphatase 53, Total Bilirubin 0.4, Total Protein 5.4L, Albumin 1.6L, Magnesium Level 2.0, Albumin/Globulin Ratio 0.42L CBC/BMP Laboratory Tests 06/06/18 06:15 Red Blood Count 3.11 L, Mean Corpuscular Volume 95.2, Mean Corpuscular Hemoglobin 31.2, Mean Corpuscular Hemoglobin Concent 32.8, Red Cell Distribution Width 12.2, Neutrophils (%) (Auto) 85.2 H, Lymphocytes (%) (Auto) 6.9 L, Monocytes (%) (Auto) 7.2 H, Eosinophils (%) (Auto) 0.3, Basophils (%) (Auto) 0.1, Neutrophils # (Auto) 8.0 H, Lymphocytes # (Auto) 0.6 L, Monocytes # (Auto) 0.7, Eosinophils # (Auto) 0.0, Basophils # (Auto) 0.0, Calcium Level 7.6 L, Aspartate Amino Transf (AST/SGOT) 57 H, Alanine Aminotransferase (ALT/SGPT) 54, Alkaline Phosphatase 53, Total Bilirubin 0.4, Total Protein 5.4 L, Albumin 1.6 L Microbiology Microbiology 06/01/18 Blood Culture - Preliminary, Resulted No Growth after 72 hours. All specime... 06/01/18 Blood Culture - Final, Complete Staphylococcus Aureus 06/03/18 Stool Occult Blood (LAURA) - Final, Complete 06/02/18 Stool Occult Blood (LAURA) - Final, Complete 06/01/18 Stool Occult Blood (ALURA) - Final, Complete 06/01/18 MRSA Screen - Final, Complete Bobbi Ware Jun 06, 2018 08:52 Arsalan Banks MD Jun 06, 2018 11:52
[2018-06-06 09:53] LABS: DRVV SCREEN 53.6 SEC
[2018-06-06 09:55] LABS: PTT LUPUS TYPE ANTICOAG SCREEN 1.3 (0-1.2)
[2018-06-06 10:02] LABS: DRVV CONFIRM 46.8 SEC; LUPUS CONFIRM RATIO 1.2
[2018-06-06 10:20] LABS: NORMALIZED RATIO 1.08 (0.00-1.20)
[2018-06-06 14:00] VITALS: BP 118/59
[2018-06-06] MEDS ORDERED: RIVAROXABAN 15 MG TAB (XARELTO) PO SCH (15:00)
[2018-06-06] MEDS ORDERED: RIVAROXABAN 15 MG TAB (XARELTO) PO ONE (15:00)
[2018-06-06] MEDS: cefTRIAXone SOD 1 GM in D5W MINI-BAG PLUS 50 ML IV SCH (20:03)
[2018-06-06 22:00] VITALS: BP 144/81
--- NOTE | 2018-06-06 23:10 | ECHO ---
DATE OF PROCEDURE: 06/05/2018 REFERRING PHYSICIAN: Jhony Krueger MD PATIENT LOCATION: Room 4218 REASON FOR ECHOCARDIOGRAM: sepsis. 2D MEASUREMENTS: IVS: 0.9 cm LV: 4.0 cm LVPW: 0.9 cm LA: 2.9 cm Aorta: 3.1 cm DOPPLER MEASUREMENTS: Maximum velocity across the tricuspid valve: 2.9 m/s 2D COMMENTS: 1. The study was technically limited because patient was uncooperative during the test. 2. The left ventricular size is normal as well as left ventricular wall thickness and systolic function. The estimated global left ventricular systolic function is 60 to 65%. 2. The left atrium appeared to be normal in size. Both the right atrium and the right ventricle were dilated. 3. The atrial septum appeared to be normal without evidence of defect or shunt. 4. Normal aortic root. 5. No pericardial effusion seen. 6. Mildly calcified aortic valve with normal leaflet excursion. Mildly calcified mitral annulus with normal anterior mitral valve leaflet motion. The pulmonic valve appeared to be normal in limited views. The proximal pulmonary artery branches were not well visualized. The inferior vena cava was not visualized. DOPPLER: It detects mild to moderate tricuspid regurgitation. The calculated pulmonary artery systolic pressure varies between 40 to 50 mmHg. Assessment of the left ventricular diastolic function was not done because patient was not cooperative. IMPRESSION: 1. Normal global left ventricular systolic function. Assessment of the left ventricular diastolic function is undetermined. 2. Aortic valve sclerosis without stenosis or aortic regurgitation. 3. Isolated mitral annulus calcification. Not mentioned above, trace mitral regurgitation detected. 4. Mild to moderate tricuspid regurgitation with moderate pulmonary hypertension and dilated right heart chambers. 5. As mentioned, patient was not cooperative during the test. [facility]
[2018-06-07 06:00] VITALS: BP 122/69
[2018-06-07 06:47] LABS: BASO % 0.1 % (0.0-1.0); EOS # 0.1 10^3/uL (0.0-0.50); EOS % 0.7 % (0.0-3.0); HEMATOCRIT 29.2 % (42.0-52.0); HEMOGLOBIN 9.4 g/dl (13.5-17.5); LYMPH # 0.7 10^3/uL (1.5-4.5); LYMPH % 7.6 % (24.0-44.0); MEAN CORPUSCULAR HEMOGLOBIN 31.3 pg (27.0-33.0); MEAN CORPUSCULAR HGB CONC 32.2 g/dl (32.0-36.5); MEAN CORPUSCULAR VOLUME 97.3 fl (80.0-96.0); MONO # 0.7 10^3/uL (0.0-0.8); MONO % 8.6 % (0.0-5.0); NEUTROPHILS % 82.5 % (36.0-66.0); PLATELET COUNT, AUTOMATED 239 10^3/uL (150-450); WHITE BLOOD COUNT 8.5 10^3/uL (4.0-10.0)
[2018-06-07 07:09] LABS: ALBUMIN 1.6 GM/DL (3.2-5.2); ALT/SGPT 79 U/L (12-78); BILIRUBIN,TOTAL 0.3 MG/DL (0.2-1.0); BLOOD UREA NITROGEN 16 MG/DL (7-18); CALCIUM LEVEL 7.4 MG/DL (8.8-10.2); CARBON DIOXIDE LEVEL 27 MEQ/L (21-32); CHLORIDE LEVEL 106 MEQ/L (98-107); CREATININE FOR GFR 0.82 MG/DL (0.70-1.30); GLOMERULAR FILTRATION RATE > 60.0 (>42); GLUCOSE, FASTING 98 MG/DL (70-100); MAGNESIUM LEVEL 2.1 MG/DL (1.8-2.4); POTASSIUM SERUM 3.8 MEQ/L (3.5-5.1); SODIUM LEVEL 139 MEQ/L (136-145); TOTAL PROTEIN 5.5 GM/DL (6.4-8.2)
[2018-06-07] MEDS: RIVAROXABAN 15 MG TAB (XARELTO) PO SCH ×2 (08:54→17:38)
--- NOTE | 2018-06-07 11:08 | IPNPDOC ---
Subjective Date Seen The patient was seen on 06/07/18. Subjective Chief Complaint/HPI Pt this morning sitting in bedside chair. Nursing/PT cont to have concerns with the pts caregivers ability to care for him including her aggressive handling of the patient. General: Reports: ROS Unobtainable Objective Physical Examination General Exam: Positive: Alert, No Acute Distress; Negative: Cooperative ENT Exam: Positive: Mucous membr. moist/pink Neck Exam: Positive: Supple Chest Exam: Positive: Clear to auscultation; Negative: Rales, Rhonchi, Wheezing Heart Exam: Positive: Rate Normal, Normal S1, Normal S2 Abdomen Exam: Positive: Normal bowel sounds, Soft; Negative: Tenderness (no perceivable tenderness with palpation.) Extremity Exam: Positive: Edema (RLE edema, mild erythema, no edema of LLE) Neuro Exam: Negative: Normal Gait, Normal Speech Psych Exam: Positive: Other (non-verbal, cooperative); Negative: Mental status NL, Mood NL Assessment /Plan Problems (1) Sepsis Status: Acute Response to Treatment: Worse Discussed With: Nurse, Patient Problem Specific Plan: Monitor Clinically, Repeat Labs Problem Text: 06/07 D3 ceftriaxone, D7 IVAbx, ECHO without vegetation. Plan to transition to PO Keflex 06/08 after third dose of Ceftriaxone tonight for additional 7 days of treatment. Case dw Dr Banks. 06/06/18: day #2 ceftriaxone. Echo pending 06/05/18: Transition to ceftriaxone MSSA on bl cx x 1. WBC stable at 9,000. Afebrile. Echo ordered. Febrile with Tmax 102.6, WBC 16.8, stable c/w yest, will obtain CRP. Lactic acid on admission 1.0. On IV fluid, IV Ceftaroline D2. (2) Deep vein thrombosis (DVT) of right lower extremity Status: Acute Problem Specific Plan: Monitor Clinically Problem Text: 06/07 Cont with Xarelto 06/06/18: transitioned to xarelto po today. passed ST eval. 06/05/18: Currently treated with Lovenox. DOAC on hold due to poor cognition and minimal po intake. Tolerating breakfast this am. hypercoag work up pending, US RLE + DVT, started on therapeutic Lovenox dosing on admission. (3) Bilateral pneumonia Status: Acute Problem Specific Plan: Monitor Clinically, Repeat Labs Problem Text: See above (4) Alzheimer's dementia Status: Chronic Problem Specific Plan: Monitor Clinically Problem Text: 06/07 progressive dementia, concerns from family DIL Claudia King who is to Johan, son of the pt, have concerns with care being provided, have attempted to be vocal regarding this in the past with push back from the caregiver. Will need to be determined to be safe with PT before able to be d/c, vs SNF placement. 06/02 Note from Neuro 01/08 suggests significant progression, including progressive aphasia, caregiver also c/o sedation, drowsiness. (5) Acute metabolic encephalopathy Status: Acute Response to Treatment: Stable Problem Specific Plan: Monitor Clinically Problem Text: 06/05/18: awake, cooperative this am, eating breakfast assisted by nursing staff. secondary to sepsis (6) Hypernatremia Status: Resolved Problem Specific Plan: Monitor Clinically Problem Text: pt not taking anything PO, I suspect this is contributing to his elevated Na, he has IVF ordered, cont to monitor. (7) Protein-calorie malnutrition, moderate Status: Chronic Response to Treatment: Stable Problem Text: Low albumin likely product of reduced calorie intake resulting from dementia. Plan/VTE VTE Prophylaxis Ordered?: Yes VS, I&O, 24H, Fishbone Vital Signs/I&O Vital Signs Date Time Temp Pulse Resp B/P (MAP) Pulse Ox O2 Delivery O2 Flow Rate FiO2 06/07/18 06:00 97.6 89 18 122/69 (86) 96 06/01/18 17:52 Room Air I&O- Last 24 Hours up to 6 AM 06/07/18 06:00 Intake Total 1140 ml Output Total 0 ml Balance 1140 ml Laboratory Data 24H LABS Laboratory Tests 2 06/07/18 05:45: Immature Granulocyte % (Auto) 0.5, White Blood Count 8.5, Red Blood Count 3.00L, Hemoglobin 9.4L, Hematocrit 29.2L, Mean Corpuscular Volume 97.3H, Mean Corpuscular Hemoglobin 31.3, Mean Corpuscular Hemoglobin Concent 32.2, Red Cell Distribution Width 12.4, Platelet Count 239, Neutrophils (%) (Auto) 82.5H, Lymphocytes (%) (Auto) 7.6L, Monocytes (%) (Auto) 8.6H, Eosinophils (%) (Auto) 0.7, Basophils (%) (Auto) 0.1, Neutrophils # (Auto) 7.0, Lymphocytes # (Auto) 0.7L, Monocytes # (Auto) 0.7, Eosinophils # (Auto) 0.1, Basophils # (Auto) 0.0, Nucleated Red Blood Cells % (auto) 0.0, Anion Gap 6L, Glomerular Filtration Rate > 60.0, Blood Urea Nitrogen 16, Creatinine 0.82, Sodium Level 139, Potassium Level 3.8, Chloride Level 106, Carbon Dioxide Level 27, Calcium Level 7.4L, Aspartate Amino Transf (AST/SGOT) 84H, Alanine Aminotransferase (ALT/SGPT) 79H, Alkaline Phosphatase 62, Total Bilirubin 0.3, Total Protein 5.5L, Albumin 1.6L, Magnesium Level 2.1, Albumin/Globulin Ratio 0.41L CBC/BMP Laboratory Tests 06/07/18 05:45 Red Blood Count 3.00 L, Mean Corpuscular Volume 97.3 H, Mean Corpuscular Hemoglobin 31.3, Mean Corpuscular Hemoglobin Concent 32.2, Red Cell Distribution Width 12.4, Neutrophils (%) (Auto) 82.5 H, Lymphocytes (%) (Auto) 7.6 L, Monocytes (%) (Auto) 8.6 H, Eosinophils (%) (Auto) 0.7, Basophils (%) (Auto) 0.1, Neutrophils # (Auto) 7.0, Lymphocytes # (Auto) 0.7 L, Monocytes # (Auto) 0. 7, Eosinophils # (Auto) 0.1, Basophils # (Auto) 0.0, Calcium Level 7.4 L, Aspartate Amino Transf (AST/SGOT) 84 H, Alanine Aminotransferase (ALT/SGPT) 79 H, Alkaline Phosphatase 62, Total Bilirubin 0.3, Total Protein 5.5 L, Albumin 1.6 L Microbiology Microbiology 06/01/18 Blood Culture - Final, Complete NO GROWTH AFTER 5 DAYS 06/01/18 Blood Culture - Final, Complete Staphylococcus Aureus 06/03/18 Stool Occult Blood (LAURA) - Final, Complete 06/02/18 Stool Occult Blood (LAURA) - Final, Complete 06/01/18 Stool Occult Blood (LAURA) - Final, Complete 06/01/18 MRSA Screen - Final, Complete JAVAD ESTRELLA PA-C Jun 07, 2018 11:08
[2018-06-07 14:00] VITALS: BP 121/57
[2018-06-07] MEDS: cefTRIAXone SOD 1 GM in D5W MINI-BAG PLUS 50 ML IV SCH (21:03)
[2018-06-07 22:00] VITALS: BP 128/54
[2018-06-08 06:00] VITALS: BP 114/56
[2018-06-08] MEDS: CEPHALEXIN 500 MG CAP PO SCH ×3 (06:00→21:10)
[2018-06-08 06:35] LABS: BASO % 0.1 % (0.0-1.0); EOS # 0.1 10^3/uL (0.0-0.50); EOS % 0.7 % (0.0-3.0); HEMATOCRIT 28.8 % (42.0-52.0); HEMOGLOBIN 9.2 g/dl (13.5-17.5); LYMPH # 0.9 10^3/uL (1.5-4.5); LYMPH % 10.2 % (24.0-44.0); MEAN CORPUSCULAR HEMOGLOBIN 30.9 pg (27.0-33.0); MEAN CORPUSCULAR HGB CONC 31.9 g/dl (32.0-36.5); MEAN CORPUSCULAR VOLUME 96.6 fl (80.0-96.0); MONO # 0.9 10^3/uL (0.0-0.8); MONO % 10.7 % (0.0-5.0); NEUTROPHILS # 6.6 10^3/uL (1.8-7.7); NEUTROPHILS % 77.7 % (36.0-66.0); PLATELET COUNT, AUTOMATED 251 10^3/uL (150-450); RED BLOOD COUNT 2.98 10^6/uL (4.30-6.10); WHITE BLOOD COUNT 8.5 10^3/uL (4.0-10.0)
[2018-06-08 07:08] LABS: ALBUMIN 1.6 GM/DL (3.2-5.2); ALT/SGPT 101 U/L (12-78); BILIRUBIN,TOTAL 0.2 MG/DL (0.2-1.0); BLOOD UREA NITROGEN 16 MG/DL (7-18); CALCIUM LEVEL 7.8 MG/DL (8.8-10.2); CARBON DIOXIDE LEVEL 28 MEQ/L (21-32); CHLORIDE LEVEL 106 MEQ/L (98-107); CREATININE FOR GFR 0.82 MG/DL (0.70-1.30); GLOMERULAR FILTRATION RATE > 60.0 (>42); GLUCOSE, FASTING 99 MG/DL (70-100); SODIUM LEVEL 139 MEQ/L (136-145); TOTAL PROTEIN 5.3 GM/DL (6.4-8.2)
[2018-06-08] MEDS: RIVAROXABAN 15 MG TAB (XARELTO) PO SCH ×2 (07:53→17:21)
--- NOTE | 2018-06-08 10:11 | IPNPDOC ---
Subjective Date Seen The patient was seen on 06/08/18. Subjective Chief Complaint/HPI Pt nonverbal, nursing without new concerns. General: Reports: ROS Unobtainable Objective Physical Examination General Exam: Positive: Alert, No Acute Distress; Negative: Cooperative ENT Exam: Positive: Mucous membr. moist/pink Neck Exam: Positive: Supple Chest Exam: Positive: Clear to auscultation, Diminished; Negative: Rales, Rhonchi, Wheezing Heart Exam: Positive: Rate Normal, Normal S1, Normal S2 Abdomen Exam: Positive: Normal bowel sounds, Soft; Negative: Tenderness (no perceivable tenderness with palpation.) Extremity Exam: Positive: Edema (RLE edema, mild erythema, no edema of LLE) Neuro Exam: Negative: Normal Gait, Normal Speech Psych Exam: Positive: Other (non-verbal, cooperative); Negative: Mental status NL, Mood NL Assessment /Plan Problems (1) Sepsis Status: Acute Response to Treatment: Worse Discussed With: Nurse, Patient Problem Specific Plan: Monitor Clinically, Repeat Labs Problem Text: 06/08 Completed IV Abx x 7 days, transitioned to PO today x 7 days. 06/07 D3 ceftriaxone, D7 IVAbx, ECHO without vegetation. Plan to transition to PO Keflex 06/08 after third dose of Ceftriaxone tonight for additional 7 days of treatment. Case dw Dr Banks. 06/06/18: day #2 ceftriaxone. Echo pending 06/05/18: Transition to ceftriaxone MSSA on bl cx x 1. WBC stable at 9,000. Afebrile. Echo ordered. Febrile with Tmax 102.6, WBC 16.8, stable c/w yest, will obtain CRP. Lactic acid on admission 1.0. On IV fluid, IV Ceftaroline D2. (2) Elevated LFTs Status: Acute Response to Treatment: Worse Discussed With: Patient Problem Specific Plan: Monitor Clinically, Repeat Labs Problem Text: LFTs steadily treading up, unlikely medication related, will obtain Liver US. further investigations might include search for infectious and autoimmune problems but dubious clinical utility in this man with advanced dementia. (3) Deep vein thrombosis (DVT) of right lower extremity Status: Acute Problem Specific Plan: Monitor Clinically Problem Text: 06/07 Cont with Xarelto 06/06/18: transitioned to xarelto po today. passed ST eval. 06/05/18: Currently treated with Lovenox. DOAC on hold due to poor cognition and minimal po intake. Tolerating breakfast this am. hypercoag work up pending, US RLE + DVT, started on therapeutic Lovenox dosing on admission. (4) Bilateral pneumonia Status: Acute Problem Specific Plan: Monitor Clinically, Repeat Labs Problem Text: See above (5) Alzheimer's dementia Status: Chronic Problem Specific Plan: Monitor Clinically Problem Text: 06/08 plan to SNF when LFTs turn around. 06/07 progressive dementia, concerns from family DIL Claudia King who is to Johan, son of the pt, have concerns with care being provided, have attempted to be vocal regarding this in the past with push back from the caregiver. Will need to be determined to be safe with PT before able to be d/c, vs SNF placement. 06/02 Note from Neuro 01/08 suggests significant progression, including progressive aphasia, caregiver also c/o sedation, drowsiness. (6) Acute metabolic encephalopathy Status: Acute Response to Treatment: Stable Problem Specific Plan: Monitor Clinically Problem Text: 06/05/18: awake, cooperative this am, eating breakfast assisted by nursing staff. secondary to sepsis (7) Hypernatremia Status: Resolved Problem Specific Plan: Monitor Clinically Problem Text: pt not taking anything PO, I suspect this is contributing to his elevated Na, he has IVF ordered, cont to monitor. (8) Protein-calorie malnutrition, moderate Status: Chronic Response to Treatment: Stable Problem Text: Low albumin likely product of reduced calorie intake resulting from dementia. Plan/VTE VTE Prophylaxis Ordered?: Yes VS, I&O, 24H, Fishbone Vital Signs/I&O Vital Signs Date Time Temp Pulse Resp B/P (MAP) Pulse Ox O2 Delivery O2 Flow Rate FiO2 06/08/18 06:00 97.5 72 20 114/56 (75) 95 I&O- Last 24 Hours up to 6 AM 06/08/18 06:00 Intake Total 840 ml Balance 840 ml Laboratory Data 24H LABS Laboratory Tests 2 06/08/18 05:50: Immature Granulocyte % (Auto) 0.6, White Blood Count 8.5, Red Blood Count 2.98L, Hemoglobin 9.2L, Hematocrit 28.8L, Mean Corpuscular Volume 96.6H, Mean Corpuscular Hemoglobin 30.9, Mean Corpuscular Hemoglobin Concent 31.9L, Red Cell Distribution Width 12.4, Platelet Count 251, Neutrophils (%) (Auto) 77.7H, Lymphocytes (%) (Auto) 10.2L, Monocytes (%) (Auto) 10.7H, Eosinophils (%) (Auto) 0.7, Basophils (%) (Auto) 0.1, Neutrophils # (Auto) 6.6, Lymphocytes # (Auto) 0.9L, Monocytes # (Auto) 0.9H, Eosinophils # (Auto) 0.1, Basophils # (Auto) 0.0, Nucleated Red Blood Cells % (auto) 0.0, Anion Gap 5L, Glomerular Filtration Rate > 60.0, Blood Urea Nitrogen 16, Creatinine 0.82, Sodium Level 139, Potassium Level 4.0, Chloride Level 106, Carbon Dioxide Level 28, Calcium Level 7.8L, Aspartate Amino Transf (AST/SGOT) 100H, Alanine Aminotransferase (ALT/SGPT) 101H, Alkaline Phosphatase 59, Total Bilirubin 0.2, Total Protein 5.3L, Albumin 1.6L, Magnesium Level 2.0, Albumin/Globulin Ratio 0.43L CBC/BMP Laboratory Tests 06/08/18 05:50 Red Blood Count 2.98 L, Mean Corpuscular Volume 96.6 H, Mean Corpuscular Hemoglobin 30.9, Mean Corpuscular Hemoglobin Concent 31.9 L, Red Cell Distribution Width 12.4, Neutrophils (%) (Auto) 77.7 H, Lymphocytes (%) (Auto) 10.2 L, Monocytes (%) (Auto) 10.7 H, Eosinophils (%) (Auto) 0.7, Basophils (%) (Auto) 0.1, Neutrophils # (Auto) 6.6, Lymphocytes # (Auto) 0.9 L, Monocytes # (Auto) 0.9 H, Eosinophils # (Auto) 0.1, Basophils # (Auto) 0.0, Calcium Level 7.8 L, Aspartate Amino Transf (AST/SGOT) 100 H, Alanine Aminotransferase (ALT/SGPT) 101 H, Alkaline Phosphatase 59, Total Bilirubin 0.2, Total Protein 5.3 L, Albumin 1.6 L Microbiology Microbiology 06/01/18 Blood Culture - Final, Complete NO GROWTH AFTER 5 DAYS 06/01/18 Blood Culture - Final, Complete Staphylococcus Aureus 06/03/18 Stool Occult Blood (LAURA) - Final, Complete 06/02/18 Stool Occult Blood (LAURA) - Final, Complete 06/01/18 Stool Occult Blood (LAURA) - Final, Complete 06/01/18 MRSA Screen - Final, Complete AJVAD ESTRELLA PA-C Jun 08, 2018 10:11 Arsalan Banks MD Jun 08, 2018 12:05
[2018-06-08 14:00] VITALS: BP 109/55
--- NOTE | 2018-06-08 15:48 | REP ---
Abdominal right upper quadrant ultrasound for elevated liver function tests: A CT of the chest dated 06/01/2018 identified multiple gallbladder calculi. The examination is technically difficult because of patient mental status, the patient was combative during the examination. The patient remained in the left lateral decubitus position throughout the examination. The gallbladder was unable to be visualized. There is no intrahepatic or extrahepatic biliary duct dilatation, the common biliary duct measures 3.9 mm in diameter. The hepatic left lobe could not be visualized. Within the hepatic right lobe hepato steatosis is identified. The pancreas could not be visualized. There is limited visualization of the right kidney. The right kidney appears to be a pelvic kidney and measures 11.1 x 4.3 x 3.0 cm and is normal size. Impression: Limited study as described. There are findings compatible with hepato steatosis. There is no biliary duct dilatation. 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 The gallbladder could not be visualized. Electronically Signed by Fran Aponte MD 06/08/2018 03:40 P
[2018-06-08 22:00] VITALS: BP 121/56
[2018-06-09] MEDS: CEPHALEXIN 500 MG CAP PO SCH ×3 (05:08→22:26)
[2018-06-09 06:00] VITALS: BP 106/56
[2018-06-09 07:06] LABS: ALBUMIN 1.7 GM/DL (3.2-5.2); ALT/SGPT 115 U/L (12-78); BILIRUBIN,TOTAL 0.3 MG/DL (0.2-1.0); BLOOD UREA NITROGEN 19 MG/DL (7-18); CALCIUM LEVEL 7.4 MG/DL (8.8-10.2); CARBON DIOXIDE LEVEL 28 MEQ/L (21-32); CHLORIDE LEVEL 103 MEQ/L (98-107); GLOMERULAR FILTRATION RATE > 60.0 (>42); GLUCOSE, FASTING 97 MG/DL (70-100); POTASSIUM SERUM 4.1 MEQ/L (3.5-5.1); SODIUM LEVEL 139 MEQ/L (136-145); TOTAL PROTEIN 5.6 GM/DL (6.4-8.2)
[2018-06-09] MEDS: RIVAROXABAN 15 MG TAB (XARELTO) PO SCH ×2 (08:44→17:36)
--- NOTE | 2018-06-09 08:47 | IPNPDOC ---
Subjective Date Seen The patient was seen on 06/09/18. Subjective Chief Complaint/HPI Nursing without new concerns. General: Reports: ROS Unobtainable Objective Physical Examination General Exam: Positive: Alert, Cooperative (asleep when I entered, awoke to voice), No Acute Distress ENT Exam: Positive: Mucous membr. moist/pink Neck Exam: Positive: Supple Chest Exam: Positive: Clear to auscultation, Diminished; Negative: Rales, Rhonchi, Wheezing Heart Exam: Positive: Rate Normal, Normal S1, Normal S2 Abdomen Exam: Positive: Normal bowel sounds, Soft; Negative: Tenderness (no perceivable tenderness with palpation.) Extremity Exam: Positive: Edema (RLE edema, mild erythema, no edema of LLE) Neuro Exam: Negative: Normal Gait, Normal Speech Psych Exam: Positive: Other (non-verbal, cooperative); Negative: Mental status NL, Mood NL Assessment /Plan Problems (1) Sepsis Status: Acute Response to Treatment: Worse Discussed With: Nurse, Patient Problem Specific Plan: Monitor Clinically, Repeat Labs Problem Text: 06/09 Keflex D2/7 06/08 Completed IV Abx x 7 days, transitioned to PO today x 7 days. 06/07 D3 ceftriaxone, D7 IVAbx, ECHO without vegetation. Plan to transition to PO Keflex 06/08 after third dose of Ceftriaxone tonight for additional 7 days of treatment. Case dw Dr Banks. 06/06/18: day #2 ceftriaxone. Echo pending 06/05/18: Transition to ceftriaxone MSSA on bl cx x 1. WBC stable at 9,000. Afebrile. Echo ordered. Febrile with Tmax 102.6, WBC 16.8, stable c/w yest, will obtain CRP. Lactic acid on admission 1.0. On IV fluid, IV Ceftaroline D2. (2) Elevated LFTs Status: Acute Response to Treatment: Worse Discussed With: Patient Problem Specific Plan: Monitor Clinically, Repeat Labs Problem Text: 06/09 LFTs mack slightly again, Liver US without acute findings, will cont to monitor, SNF when LFTs trend down 06/08 LFTs steadily treading up, unlikely medication related, will obtain Liver US. further investigations might include search for infectious and autoimmune problems but dubious clinical utility in this man with advanced dementia. (3) Deep vein thrombosis (DVT) of right lower extremity Status: Acute Problem Specific Plan: Monitor Clinically Problem Text: 06/07 Cont with Xarelto 06/06/18: transitioned to xarelto po today. passed ST eval. 06/05/18: Currently treated with Lovenox. DOAC on hold due to poor cognition and minimal po intake. Tolerating breakfast this am. hypercoag work up pending, US RLE + DVT, started on therapeutic Lovenox dosing on admission. (4) Bilateral pneumonia Status: Acute Problem Specific Plan: Monitor Clinically, Repeat Labs Problem Text: See above (5) Alzheimer's dementia Status: Chronic Problem Specific Plan: Monitor Clinically Problem Text: 06/08 plan to SNF when LFTs turn around. 06/07 progressive dementia, concerns from family DIL Claudia King who is to Johan, son of the pt, have concerns with care being provided, have attempted to be vocal regarding this in the past with push back from the caregiver. Will need to be determined to be safe with PT before able to be d/c, vs SNF placement. 06/02 Note from Neuro 01/08 suggests significant progression, including progressive aphasia, caregiver also c/o sedation, drowsiness. (6) Acute metabolic encephalopathy Status: Resolved Response to Treatment: Stable Problem Specific Plan: Monitor Clinically Problem Text: 06/05/18: awake, cooperative this am, eating breakfast assisted by nursing staff. secondary to sepsis (7) Hypernatremia Status: Resolved Problem Specific Plan: Monitor Clinically Problem Text: pt not taking anything PO, I suspect this is contributing to his elevated Na, he has IVF ordered, cont to monitor. (8) Protein-calorie malnutrition, moderate Status: Chronic Response to Treatment: Stable Problem Text: Low albumin likely product of reduced calorie intake resulting from dementia. Plan/VTE VTE Prophylaxis Ordered?: Yes VS, I&O, 24H, Temobone Vital Signs/I&O Vital Signs Date Time Temp Pulse Resp B/P (MAP) Pulse Ox O2 Delivery O2 Flow Rate FiO2 06/09/18 06:00 98.0 73 18 106/56 (73) 96 I&O- Last 24 Hours up to 6 AM 06/09/18 06:00 Intake Total 420 ml Output Total 0 ml Balance 420 ml Laboratory Data 24H LABS Laboratory Tests 2 06/09/18 06:06: Anion Gap 8, Glomerular Filtration Rate > 60.0, Blood Urea Nitrogen 19H, Creatinine 0.80, Sodium Level 139, Potassium Level 4.1, Chloride Level 103, Carbon Dioxide Level 28, Calcium Level 7.4L, Aspartate Amino Transf (AST/SGOT) 101H, Alanine Aminotransferase (ALT/SGPT) 115H, Alkaline Phosphatase 61, Total Bilirubin 0.3, Total Protein 5.6L, Albumin 1.7L, Albumin/Globulin Ratio 0.44L CBC/BMP Laboratory Tests 06/09/18 06:06 Calcium Level 7.4 L, Aspartate Amino Transf (AST/SGOT) 101 H, Alanine Aminotransferase (ALT/SGPT) 115 H, Alkaline Phosphatase 61, Total Bilirubin 0.3, Total Protein 5.6 L, Albumin 1.7 L Microbiology Microbiology 06/01/18 Blood Culture - Final, Complete NO GROWTH AFTER 5 DAYS 06/01/18 Blood Culture - Final, Complete Staphylococcus Aureus 06/03/18 Stool Occult Blood (LAURA) - Final, Complete 06/02/18 Stool Occult Blood (LAURA) - Final, Complete 06/01/18 Stool Occult Blood (LAURA) - Final, Complete 06/01/18 MRSA Screen - Final, Complete JAVAD ESTRELLA PA-C Jun 09, 2018 08:47
[2018-06-09 14:00] VITALS: BP 117/60
[2018-06-09 20:00] VITALS: BP 137/71
[2018-06-10 06:00] VITALS: BP 110/62
[2018-06-10] MEDS: CEPHALEXIN 500 MG CAP PO SCH ×3 (06:15→22:18)
[2018-06-10 07:09] LABS: ALBUMIN 1.8 GM/DL (3.2-5.2); ALT/SGPT 99 U/L (12-78); BILIRUBIN,DIRECT < 0.1 MG/DL (0.0-0.2); BILIRUBIN,TOTAL 0.3 MG/DL (0.2-1.0); TOTAL PROTEIN 5.8 GM/DL (6.4-8.2)
[2018-06-10] MEDS: RIVAROXABAN 15 MG TAB (XARELTO) PO SCH ×2 (08:56→17:21)
[2018-06-10 13:00] VITALS: BP 133/63
--- NOTE | 2018-06-10 17:18 | IPN ---
DATE: 06/10/2018 The patient is seen today [facility]. He was signed out to me earlier today by Dr. Banks. He is a 73-year-old gentleman with Alzheimer's disease. He has been getting intravenous (IV) antibiotic because of pneumonia and positive blood cultures for staphylococcus. He has also been treated for acute deep vein thrombosis (DVT). It had been noted that his liver functions were elevated, which may be a function of his antibiotic medications. The patient is nonverbal and prefers to assume a curled-up position in his bed. CURRENT MEDICATIONS: - Keflex 500 mg every 8 hours by mouth - Xarelto 15 mg twice a day - as-needed Tylenol On examination, temperature is 98.6, blood pressure 133/63, pulse 69 and seems regular. He is awake but nonverbal. Curled up as mentioned above. There is no cough. No labored breathing. Eyes are clear. No facial weakness. Mucous membranes are moist. Lungs are clear. Heart has regular rhythm without any murmur, click, or gallop. There is no edema. Abdomen soft and nontender. Labs today show hemoglobin of 9.2, WBC 8500. His BUN is 19, creatinine 0.8, sodium 139, potassium 4.1, glucose 97. Those chemistries were done yesterday. Liver functions done today show an AST of 70, which is down 30%, an ALT of 99, which is down 15%. Alkaline phosphatase was normal. Albumin is low at 1.8. Bilirubin was normal. ASSESSMENT: 1. Sepsis with staphylococcus bacteremia. He is back on oral antibiotic at this time. Elevated liver functions may be related to antibiotics. These have improved. 2. Deep vein thrombosis (DVT), on treatment with Xarelto. 3. Pneumonia, clinically resolved. 4. Alzheimer's dementia, advanced. 5. Hypernatremia, resolved. 6. Protein calorie malnutrition. PLAN: Patient will continue on his current regimen. My understanding is that we are going to continue to observe his liver functions, continue on the antibiotics. Question what is the appropriate placement for him and whether his needs are being met in his pre-hospital setting. [facility]
[2018-06-10 22:00] VITALS: BP 127/60
[2018-06-11] MEDS: CEPHALEXIN 500 MG CAP PO SCH ×3 (05:24→23:08)
[2018-06-11 06:00] VITALS: BP 118/64
[2018-06-11] MEDS: RIVAROXABAN 15 MG TAB (XARELTO) PO SCH ×2 (09:26→17:17)
[2018-06-11 14:00] VITALS: BP 118/59
[2018-06-11 22:00] VITALS: BP 125/61
[2018-06-12 06:00] VITALS: BP 128/63
[2018-06-12] MEDS: CEPHALEXIN 500 MG CAP PO SCH ×2 (06:49→14:12)
[2018-06-12 07:05] LABS: ALBUMIN 2.1 GM/DL (3.2-5.2); ALT/SGPT 107 U/L (12-78); BILIRUBIN,TOTAL 0.2 MG/DL (0.2-1.0); BLOOD UREA NITROGEN 21 MG/DL (7-18); CALCIUM LEVEL 8.1 MG/DL (8.8-10.2); CARBON DIOXIDE LEVEL 31 MEQ/L (21-32); CHLORIDE LEVEL 104 MEQ/L (98-107); CREATININE FOR GFR 0.92 MG/DL (0.70-1.30); GLOMERULAR FILTRATION RATE > 60.0 (>42); GLUCOSE, FASTING 91 MG/DL (70-100); POTASSIUM SERUM 4.4 MEQ/L (3.5-5.1); SODIUM LEVEL 138 MEQ/L (136-145); TOTAL PROTEIN 6.3 GM/DL (6.4-8.2)
[2018-06-12] MEDS: RIVAROXABAN 15 MG TAB (XARELTO) PO SCH ×2 (08:34→17:18)
--- NOTE | 2018-06-12 08:56 | IPN ---
DATE OF VISIT: 06/11/2018 Patient is not having any cough or chest congestion. No fever. Behavior is stable. Again, he prefers to curl up in his bed and is not verbal. Current medications are cephalexin by mouth, Xarelto, and he has as needed Tylenol suppository available. On examination, temperature is 98.2, blood pressure 118/64, pulse oximetry is 95% on room air, respiratory rate is 15. He is nonverbal. I suspect that if he was verbal that we find that he was not oriented to time or place. No facial weakness. No neck masses, tenderness or adenopathy. No carotid bruits. Mucous membranes are moist. Lungs sound clear. Heart has a regular rhythm without any murmur, click or gallop. Abdomen is soft and nontender. There is no edema. Labs today; actually he did not have a CBC today or chemistry profile but his labs were trending down. His blood culture from 06/01/2018 showed Staphylococcus aureus but methicillin-sensitive. Stool hemoculture negative. ASSESSMENT: 1. Sepsis with methicillin-susceptible Staphylococcus aureus (MSSA) bacteremia. He is on oral antibiotic. Liver functions were trending down maybe related to antibiotics. 2. Deep venous thrombosis (DVT) on Xarelto. 3. Pneumonia, clinically resolved. 4. Alzheimer's dementia, advanced. 5. Hypernatremia, resolved. 6. Protein calorie malnutrition. PLAN: Patient will continue on his current regimen. I think he has almost completed the course of cephalosporin that he needs. We will check his liver functions again tomorrow, and then the decision is where he goes next whether he needs placement or whether he can return to his previous home setting. [facility]
[2018-06-12 09:27] LABS: BASO % 0.1 % (0.0-1.0); EOS # 0.1 10^3/uL (0.0-0.50); EOS % 1.8 % (0.0-3.0); HEMATOCRIT 31.2 % (42.0-52.0); HEMOGLOBIN 9.9 g/dl (13.5-17.5); LYMPH # 1.2 10^3/uL (1.5-4.5); LYMPH % 16.8 % (24.0-44.0); MEAN CORPUSCULAR HEMOGLOBIN 30.7 pg (27.0-33.0); MEAN CORPUSCULAR HGB CONC 31.7 g/dl (32.0-36.5); MEAN CORPUSCULAR VOLUME 96.6 fl (80.0-96.0); MONO # 0.6 10^3/uL (0.0-0.8); MONO % 8.5 % (0.0-5.0); NEUTROPHILS % 72.5 % (36.0-66.0); PLATELET COUNT, AUTOMATED 366 10^3/uL (150-450); RED BLOOD COUNT 3.23 10^6/uL (4.30-6.10); WHITE BLOOD COUNT 6.8 10^3/uL (4.0-10.0)
--- NOTE | 2018-06-12 10:49 | IPNPDOC ---
Subjective Date Seen The patient was seen on 06/12/18. Subjective Chief Complaint/HPI pneumonia Events since last encounter non-verbal. afebrile. General: Reports: ROS Unobtainable Objective Physical Examination General Exam: Positive: Alert, Cooperative (asleep when I entered, awoke to voice), No Acute Distress ENT Exam: Positive: Mucous membr. moist/pink Neck Exam: Positive: Supple Chest Exam: Positive: Clear to auscultation; Negative: Rales, Rhonchi, Wheezing Heart Exam: Positive: Rate Normal, Normal S1, Normal S2 Abdomen Exam: Positive: Normal bowel sounds, Soft; Negative: Tenderness (no perceivable tenderness with palpation.) Extremity Exam: Negative: Edema Neuro Exam: Negative: Normal Gait, Normal Speech Psych Exam: Positive: Other (non-verbal, cooperative); Negative: Mental status NL, Mood NL Assessment /Plan Problems (1) Sepsis Status: Acute Response to Treatment: Improving Discussed With: Nurse, Patient Problem Specific Plan: Monitor Clinically, Repeat Labs Problem Text: 06/12/18: Keflex day5/7. PFS and PT continue to work on safe disposition 06/09 Keflex D2/7 06/08 Completed IV Abx x 7 days, transitioned to PO today x 7 days. 06/07 D3 ceftriaxone, D7 IVAbx, ECHO without vegetation. Plan to transition to PO Keflex 06/08 after third dose of Ceftriaxone tonight for additional 7 days of treatment. Case dw Dr Banks. 06/06/18: day #2 ceftriaxone. Echo pending 06/05/18: Transition to ceftriaxone MSSA on bl cx x 1. WBC stable at 9,000. Afebrile. Echo ordered. Febrile with Tmax 102.6, WBC 16.8, stable c/w yest, will obtain CRP. Lactic acid on admission 1.0. On IV fluid, IV Ceftaroline D2. (2) Bilateral pneumonia Status: Acute Problem Specific Plan: Monitor Clinically, Repeat Labs Problem Text: See above (3) Elevated LFTs Status: Acute Response to Treatment: Stable Discussed With: Patient Problem Specific Plan: Monitor Clinically, Repeat Labs Problem Text: 06/12: There remains an element of transaminitis, but it is relatively stable and slowly improving. This is not likely clinically relevant anymore. 06/09 LFTs mack slightly again, Liver US without acute findings, will cont to monitor, SNF when LFTs trend down 06/08 LFTs steadily treading up, unlikely medication related, will obtain Liver US. further investigations might include search for infectious and autoimmune problems but dubious clinical utility in this man with advanced dementia. (4) Deep vein thrombosis (DVT) of right lower extremity Status: Acute Problem Specific Plan: Monitor Clinically Problem Text: 06/07 Cont with Xarelto 06/06/18: transitioned to xarelto po today. passed ST eval. 06/05/18: Currently treated with Lovenox. DOAC on hold due to poor cognition and minimal po intake. Tolerating breakfast this am. hypercoag work up pending, US RLE + DVT, started on therapeutic Lovenox dosing on admission. (5) Alzheimer's dementia Status: Chronic Problem Specific Plan: Monitor Clinically Problem Text: 06/12: At this point it sounds as if family prefers the patient return to his caregiver, but staff has some concerns that the care she provides is too rough for him. 06/08 plan to SNF when LFTs turn around. 06/07 progressive dementia, concerns from family DIL Claudia King who is to Johan, son of the pt, have concerns with care being provided, have attempted to be vocal regarding this in the past with push back from the caregiver. Will need to be determined to be safe with PT before able to be d/c, vs SNF placement. 06/02 Note from Neuro 01/08 suggests significant progression, including progressive aphasia, caregiver also c/o sedation, drowsiness. (6) Acute metabolic encephalopathy Status: Resolved Response to Treatment: Stable Problem Specific Plan: Monitor Clinically Problem Text: 06/05/18: awake, cooperative this am, eating breakfast assisted by nursing staff. secondary to sepsis (7) Hypernatremia Status: Resolved Problem Specific Plan: Monitor Clinically Problem Text: pt not taking anything PO, I suspect this is contributing to his elevated Na, he has IVF ordered, cont to monitor. (8) Protein-calorie malnutrition, moderate Status: Chronic Response to Treatment: Stable Problem Text: Low albumin likely product of reduced calorie intake resulting from dementia. Plan/VTE VTE Prophylaxis Ordered?: Yes Plan Family Medicine Attending Note: I saw and examined Mr. King, discussed with RENETTA Montaño. Agree with her note as documented. Nursing staff reports the patient is stable. Marjan Carreon has arranged a family meeting with the caregiver family, hospital staff, and myself for tomorrow. We need to work through some of the concerns that both family members and hospital staff have with his caregiver before we can safely discharge him back to her care. Hopefully the meeting tomorrow will help clarify this. I anticipate discharge in 2 days when he has completed his antibiotic therapy. 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) VS, I&O, 24H, Fishbone Vital Signs/I&O Vital Signs Date Time Temp Pulse Resp B/P (MAP) Pulse Ox O2 Delivery O2 Flow Rate FiO2 06/12/18 06:00 98.3 67 17 128/63 (84) 98 I&O- Last 24 Hours up to 6 AM 06/12/18 06:00 Intake Total 1440 ml Balance 1440 ml Laboratory Data 24H LABS Laboratory Tests 2 06/12/18 06:28: Immature Granulocyte % (Auto) 0.3, White Blood Count 6.8, Red Blood Count 3.23L, Hemoglobin 9.9L, Hematocrit 31.2L, Mean Corpuscular Volume 96.6H, Mean Corpuscular Hemoglobin 30.7, Mean Corpuscular Hemoglobin Concent 31.7L, Red Cell Distribution Width 12.5, Platelet Count 366, Neutrophils (%) (Auto) 72.5H, Ly mphocytes (%) (Auto) 16.8L, Monocytes (%) (Auto) 8.5H, Eosinophils (%) (Auto) 1.8, Basophils (%) (Auto) 0.1, Neutrophils # (Auto) 5.0, Lymphocytes # (Auto) 1.2L, Monocytes # (Auto) 0.6, Eosinophils # (Auto) 0.1, Basophils # (Auto) 0.0, Nucleated Red Blood Cells % (auto) 0.0, Anion Gap 3L, Glomerular Filtration Rate > 60.0, Blood Urea Nitrogen 21H, Creatinine 0.92, Sodium Level 138, Potassium Level 4.4, Chloride Level 104, Carbon Dioxide Level 31, Calcium Level 8.1L, Aspartate Amino Transf (AST/SGOT) 74H, Alanine Aminotransferase (ALT/SGPT) 107H, Alkaline Phosphatase 69, Total Bilirubin 0.2, Total Protein 6.3L, Albumin 2.1L, Albumin/Globulin Ratio 0.50L CBC/BMP Laboratory Tests 06/12/18 06:28 Red Blood Count 3.23 L, Mean Corpuscular Volume 96.6 H, Mean Corpuscular Hemo globin 30.7, Mean Corpuscular Hemoglobin Concent 31.7 L, Red Cell Distribution Width 12.5, Neutrophils (%) (Auto) 72.5 H, Lymphocytes (%) (Auto) 16.8 L, Monocytes (%) (Auto) 8.5 H, Eosinophils (%) (Auto) 1.8, Basophils (%) (Auto) 0.1, Neutrophils # (Auto) 5.0, Lymphocytes # (Auto) 1.2 L, Monocytes # (Auto) 0.6, Eosinophils # (Auto) 0.1, Basophils # (Auto) 0.0, Calcium Level 8.1 L, Aspartate Amino Transf (AST/SGOT) 74 H, Alanine Aminotransferase (ALT/SGPT) 107 H, Alkaline Phosphatase 69, Total Bilirubin 0.2, Total Protein 6.3 L, Albumin 2.1 L Microbiology Microbiology 06/03/18 Stool Occult Blood (LAURA) - Final, Complete 06/02/18 Stool Occult Blood (LAURA) - Final, Complete Bobbi Ware Jun 12, 2018 10:49 Cy Arellano MD Jun 12, 2018 23:27
[2018-06-12 22:00] VITALS: BP 112/77
[2018-06-13] MEDS: CEPHALEXIN 500 MG CAP PO SCH ×4 (01:03→22:27)
[2018-06-13 06:00] VITALS: BP 123/63
[2018-06-13 06:34] LABS: BASO % 0.2 % (0.0-1.0); EOS # 0.1 10^3/uL (0.0-0.50); HEMATOCRIT 30.4 % (42.0-52.0); LYMPH # 1.1 10^3/uL (1.5-4.5); LYMPH % 16.9 % (24.0-44.0); MEAN CORPUSCULAR HEMOGLOBIN 32.1 pg (27.0-33.0); MEAN CORPUSCULAR HGB CONC 32.9 g/dl (32.0-36.5); MEAN CORPUSCULAR VOLUME 97.4 fl (80.0-96.0); MONO # 0.5 10^3/uL (0.0-0.8); MONO % 7.1 % (0.0-5.0); NEUTROPHILS # 4.7 10^3/uL (1.8-7.7); NEUTROPHILS % 73.3 % (36.0-66.0); PLATELET COUNT, AUTOMATED 330 10^3/uL (150-450); RED BLOOD COUNT 3.12 10^6/uL (4.30-6.10); WHITE BLOOD COUNT 6.4 10^3/uL (4.0-10.0)
[2018-06-13 07:01] LABS: ALBUMIN 1.9 GM/DL (3.2-5.2); ALT/SGPT 93 U/L (12-78); BILIRUBIN,TOTAL 0.2 MG/DL (0.2-1.0); BLOOD UREA NITROGEN 23 MG/DL (7-18); CALCIUM LEVEL 7.8 MG/DL (8.8-10.2); CARBON DIOXIDE LEVEL 29 MEQ/L (21-32); CHLORIDE LEVEL 103 MEQ/L (98-107); GLOMERULAR FILTRATION RATE > 60.0 (>42); GLUCOSE, FASTING 85 MG/DL (70-100); POTASSIUM SERUM 4.1 MEQ/L (3.5-5.1); SODIUM LEVEL 138 MEQ/L (136-145); TOTAL PROTEIN 6.2 GM/DL (6.4-8.2)
[2018-06-13 08:00] VITALS: BP 96/53
--- NOTE | 2018-06-13 08:00 | IPNPDOC ---
Subjective Date Seen The patient was seen on 06/13/18. Subjective Chief Complaint/HPI no changes. FAmily meeting today to discuss disposition and home environment. General: Reports: ROS Unobtainable Constitutional: Denies: Fever Objective Physical Examination General Exam: Positive: Alert, Cooperative (asleep when I entered, awoke to voice), No Acute Distress ENT Exam: Positive: Mucous membr. moist/pink Neck Exam: Positive: Supple Chest Exam: Positive: Clear to auscultation; Negative: Rales, Rhonchi, Wheezing Heart Exam: Positive: Rate Normal, Normal S1, Normal S2 Abdomen Exam: Positive: Normal bowel sounds, Soft; Negative: Tenderness (no perceivable tenderness with palpation.) Extremity Exam: Negative: Edema Neuro Exam: Negative: Normal Gait, Normal Speech Psych Exam: Positive: Other (non-verbal, cooperative); Negative: Mental status NL, Mood NL Assessment /Plan Problems (1) Sepsis Status: Acute Response to Treatment: Improving Discussed With: Nurse, Patient Problem Specific Plan: Monitor Clinically, Repeat Labs Problem Text: 06/13/18: Keflex day 6/7. PFS and PT continue to work on safe disposition. Anticipate DC home in 1-2 days. 06/12/18: Keflex day5/7. PFS and PT continue to work on safe disposition 06/09 Keflex D2/7 06/08 Completed IV Abx x 7 days, transitioned to PO today x 7 days. 06/07 D3 ceftriaxone, D7 IVAbx, ECHO without vegetation. Plan to transition to PO Keflex 06/08 after third dose of Ceftriaxone tonight for additional 7 days of treatment. Case dw Dr Banks. 06/06/18: day #2 ceftriaxone. Echo pending 06/05/18: Transition to ceftriaxone MSSA on bl cx x 1. WBC stable at 9,000. Afebrile. Echo ordered. Febrile with Tmax 102.6, WBC 16.8, stable c/w yest, will obtain CRP. Lactic acid on admission 1.0. On IV fluid, IV Ceftaroline D2. (2) Bilateral pneumonia Status: Acute Problem Specific Plan: Monitor Clinically, Repeat Labs Problem Text: See above (3) Elevated LFTs Status: Acute Response to Treatment: Stable Discussed With: Patient Problem Specific Plan: Monitor Clinically, Repeat Labs Problem Text: 06/13/18: ALT/AST continue to show improvement. 06/12: There remains an element of transaminitis, but it is relatively stable and slowly improving. This is not likely clinically relevant anymore. 06/09 LFTs mack slightly again, Liver US without acute findings, will cont to monitor, SNF when LFTs trend down 06/08 LFTs steadily treading up, unlikely medication related, will obtain Liver US. further investigations might include search for infectious and autoimmune problems but dubious clinical utility in this man with advanced dementia. (4) Deep vein thrombosis (DVT) of right lower extremity Status: Acute Problem Specific Plan: Monitor Clinically Problem Text: 06/07 Cont with Xarelto 06/06/18: transitioned to xarelto po today. passed ST eval. 06/05/18: Currently treated with Lovenox. DOAC on hold due to poor cognition and minimal po intake. Tolerating breakfast this am. hypercoag work up pending, US RLE + DVT, started on therapeutic Lovenox dosing on admission. (5) Protein-calorie malnutrition, moderate Status: Chronic Response to Treatment: Stable Problem Text: Low albumin likely product of reduced calorie intake resulting from dementia. (6) Alzheimer's dementia Status: Chronic Problem Specific Plan: Monitor Clinically Problem Text: 06/12: At this point it sounds as if family prefers the patient return to his caregiver, but staff has some concerns that the care she provides is too rough for him. 06/08 plan to SNF when LFTs turn around. 06/07 progressive dementia, concerns from family DIL Claudia King who is to Johan, son of the pt, have concerns with care being provided, have attempted to be vocal regarding this in the past with push back from the caregiver. Will need to be determined to be safe with PT before able to be d/c, vs SNF placement. 06/02 Note from Neuro 01/08 suggests significant progression, including p rogressive aphasia, caregiver also c/o sedation, drowsiness. (7) Spastic quadriparesis Status: Chronic Response to Treatment: Stable Discussed With: Nurse, Patient, Health Care Proxy, Family with Pt Consent Problem Specific Plan: Monitor Clinically Problem Text: He has some mobility concerns and may need some durable medical equipment because of his contractures related to the dementia. We discussed this with the family today and scripts were written. (8) Acute metabolic encephalopathy Status: Resolved Response to Treatment: Stable Problem Specific Plan: Monitor Clinically Problem Text: 06/05/18: awake, cooperative this am, eating breakfast assisted by nursing staff. secondary to sepsis (9) Hypernatremia Status: Resolved Problem Specific Plan: Monitor Clinically Problem Text: pt not taking anything PO, I suspect this is contributing to his elevated Na, he has IVF ordered, cont to monitor. Plan/VTE VTE Prophylaxis Ordered?: Yes Plan Family Medicine Attending Note: I saw and examined Mr. King, discussed with RENETTA Montaño. Agree with her note as documented. I spent 50 minutes and a family meeting today. There were 2 sons and a daughter and 2 [id number] is present as well as a family caregiver, Milagros Carreon and myself. We discussed concerns of the hospital staff and noted specifically around inappropriate force use in assisting him with ADLs and IADLs and not controlling his intake of food (whether he was feeding himself or he was being fed) to an adequate rate to keep him from choking and aspirating. After some initial tension, all of the family members and the caregivers seemed to be receptive to our ideas of advocating for patient safety. The decision was that we would consult hospice to see if he meets the criteria. Since I don't think he does, the next plan will be the he returns to the caregivers home where he has been living with the family will work to assist her more. We will get him signed up for Medicaid. We will try to contact her with some respite services. We'll try to provide more DME. The remaining details are documented in Marjan's note. I anticipate discharge in about 2-3 days. 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) VS, I&O, 24H, Fishbone Vital Signs/I&O Vital Signs Date Time Temp Pulse Resp B/P (MAP) Pulse Ox O2 Delivery O2 Flow Rate FiO2 06/13/18 06:00 97.6 61 20 123/63 (83) 98 l I&O- Last 24 Hours up to 6 AM 06/13/18 05:59 Intake Total 1580 ml Output Total 0 ml Balance 1580 ml Laboratory Data 24H LABS Laboratory Tests 2 06/13/18 05:47: Immature Granulocyte % (Auto) 0.5, White Blood Count 6.4, Red Blood Count 3.12L, Hemoglobin 10.0L, Hematocrit 30.4L, Mean Corpuscular Volume 97.4H, Mean Corpuscular Hemoglobin 32.1, Mean Corpuscular Hemoglobin Concent 32.9, Red Cell Distribution Width 12.4, Platelet Count 330, Neutrophils (%) (Auto) 73.3H, Lymphocytes (%) (Auto) 16.9L, Monocytes (%) (Auto) 7.1H, Eosinophils (%) (Auto) 2.0, Basophils (%) (Auto) 0.2, Neutrophils # (Auto) 4.7, Lymphocytes # (Auto) 1.1L, Monocytes # (Auto) 0.5, Eosinophils # (Auto) 0.1, Basophils # (Auto) 0.0, Nucleated Red Blood Cells % (auto) 0.0, Anion Gap 6L, Glomerular Filtration Rate > 60.0, Blood Urea Nitrogen 23H, Creatinine 0.90, Sodium Level 138, Potassium Level 4.1, Chloride Level 103, Carbon Dioxide Level 29, Calcium Level 7.8L, Aspartate Amino Transf (AST/SGOT) 57H, Alanine Aminotransferase (ALT/SGPT) 93H, Alkaline Phosphatase 61, Total Bilirubin 0.2, Total Protein 6.2L, Albumin 1.9L, Albumin/Globulin Ratio 0.44L CBC/BMP Laboratory Tests 06/13/18 05:47 Red Blood Count 3.12 L, Mean Corpuscular Volume 97.4 H, Mean Corpuscular Hemoglobin 32.1, Mean Corpuscular Hemoglobin Concent 32.9, Red Cell Distribution Width 12.4, Neutrophils (%) (Auto) 73.3 H, Lymphocytes (%) (Auto) 16.9 L, Monocytes (%) (Auto) 7.1 H, Eosinophils (%) (Auto) 2.0, Basophils (%) (Auto) 0.2, Neutrophils # (Auto) 4.7, Lymphocytes # (Auto) 1.1 L, Monocytes # (Auto) 0.5, Eosinophils # (Auto) 0.1, Basophils # (Auto) 0.0, Calcium Level 7.8 L, Aspartate Amino Transf (AST/SGOT) 57 H, Alanine Aminotransferase (ALT/SGPT) 93 H, Alkaline Phosphatase 61, Total Bilirubin 0.2, Total Protein 6.2 L, Albumin 1.9 L Microbiology Microbiology 06/03/18 Stool Occult Blood (LAURA) - Final, Complete Bobbi Ware DIRECTOR CAMP Jun 13, 2018 08:00 Cy Arellano MD Jun 13, 2018 16:07
[2018-06-13] MEDS: RIVAROXABAN 15 MG TAB (XARELTO) PO SCH ×2 (09:16→17:09)
[2018-06-13 14:00] VITALS: BP 111/71
[2018-06-13 22:00] VITALS: BP 104/58
[2018-06-14] MEDS: CEPHALEXIN 500 MG CAP PO SCH (05:41)
[2018-06-14 06:00] VITALS: BP 110/52
[2018-06-14 06:11] LABS: BASO % 0.2 % (0.0-1.0); EOS # 0.1 10^3/uL (0.0-0.50); EOS % 2.5 % (0.0-3.0); HEMATOCRIT 30.3 % (42.0-52.0); HEMOGLOBIN 9.8 g/dl (13.5-17.5); LYMPH % 17.4 % (24.0-44.0); MEAN CORPUSCULAR HEMOGLOBIN 30.7 pg (27.0-33.0); MEAN CORPUSCULAR HGB CONC 32.3 g/dl (32.0-36.5); MONO # 0.5 10^3/uL (0.0-0.8); MONO % 8.4 % (0.0-5.0); PLATELET COUNT, AUTOMATED 366 10^3/uL (150-450); RED BLOOD COUNT 3.19 10^6/uL (4.30-6.10); WHITE BLOOD COUNT 5.7 10^3/uL (4.0-10.0)
[2018-06-14 06:41] LABS: ALT/SGPT 77 U/L (12-78); BILIRUBIN,TOTAL 0.3 MG/DL (0.2-1.0); BLOOD UREA NITROGEN 21 MG/DL (7-18); CALCIUM LEVEL 7.8 MG/DL (8.8-10.2); CARBON DIOXIDE LEVEL 29 MEQ/L (21-32); CHLORIDE LEVEL 104 MEQ/L (98-107); CREATININE FOR GFR 0.88 MG/DL (0.70-1.30); GLOMERULAR FILTRATION RATE > 60.0 (>42); GLUCOSE, FASTING 93 MG/DL (70-100); POTASSIUM SERUM 4.2 MEQ/L (3.5-5.1); SODIUM LEVEL 139 MEQ/L (136-145); TOTAL PROTEIN 6.2 GM/DL (6.4-8.2)
[2018-06-14] MEDS: RIVAROXABAN 15 MG TAB (XARELTO) PO SCH ×2 (07:40→17:10)
--- NOTE | 2018-06-14 07:40 | IPNPDOC ---
Subjective Date Seen The patient was seen on 06/14/18. Subjective Chief Complaint/HPI pneumonia Events since last encounter Unchanged. See notes regarding family meeting. General: Reports: ROS Unobtainable Objective Physical Examination General Exam: Positive: Alert, Cooperative (asleep when I entered, awoke to voice), No Acute Distress ENT Exam: Positive: Mucous membr. moist/pink Neck Exam: Positive: Supple Chest Exam: Positive: Clear to auscultation; Negative: Rales, Rhonchi, Wheezing Heart Exam: Positive: Rate Normal, Normal S1, Normal S2 Abdomen Exam: Positive: Normal bowel sounds, Soft; Negative: Tenderness (no perceivable tenderness with palpation.) Extremity Exam: Negative: Edema Neuro Exam: Negative: Normal Gait, Normal Speech Psych Exam: Positive: Other (non-verbal, cooperative); Negative: Mental status NL, Mood NL Assessment /Plan Problems (1) Sepsis Status: Acute Response to Treatment: Improving Discussed With: Nurse, Patient Problem Specific Plan: Monitor Clinically, Repeat Labs Problem Text: 06/14/18: last day of Keflex. PFS and nursing working on home disposition. Anticipate DC home tomorrow. 06/13/18: Keflex day 6/7. PFS and PT continue to work on safe disposition. Antic ipate DC home in 1-2 days. 06/12/18: Keflex day5/7. PFS and PT continue to work on safe disposition 06/09 Keflex D2/7 06/08 Completed IV Abx x 7 days, transitioned to PO today x 7 days. 06/07 D3 ceftriaxone, D7 IVAbx, ECHO without vegetation. Plan to transition to PO Keflex 06/08 after third dose of Ceftriaxone tonight for additional 7 days of treatment. Case dw Dr Banks. 06/06/18: day #2 ceftriaxone. Echo pending 06/05/18: Transition to ceftriaxone MSSA on bl cx x 1. WBC stable at 9,000. A febrile. Echo ordered. Febrile with Tmax 102.6, WBC 16.8, stable c/w yest, will obtain CRP. Lactic acid on admission 1.0. On IV fluid, IV Ceftaroline D2. (2) Bilateral pneumonia Status: Acute Problem Specific Plan: Monitor Clinically, Repeat Labs Problem Text: See above (3) Elevated LFTs Status: Acute Response to Treatment: Stable Discussed With: Patient Problem Specific Plan: Monitor Clinically, Repeat Labs Problem Text: 06/13/18: ALT/AST continue to show improvement. 06/12: There remains an element of transaminitis, but it is relatively stable and slowly improving. This is not likely clinically relevant anymore. 06/09 LFTs mack slightly again, Liver US without acute findings, will cont to monitor, SNF when LFTs trend down 06/08 LFTs steadily treading up, unlikely medication related, will obtain Liver US. further investigations might include search for infectious and autoimmune problems but dubious clinical utility in this man with advanced dementia. (4) Deep vein thrombosis (DVT) of right lower extremity Status: Acute Problem Specific Plan: Monitor Clinically Problem Text: 06/07 Cont with Xarelto 06/06/18: transitioned to xarelto po today. passed ST eval. 06/05/18: Currently treated with Lovenox. DOAC on hold due to poor cognition and minimal po intake. Tolerating breakfast this am. hypercoag work up pending, US RLE + DVT, started on therapeutic Lovenox dosing on admission. (5) Protein-calorie malnutrition, moderate Status: Chronic Response to Treatment: Stable Problem Text: Low albumin likely product of reduced calorie intake resulting from dementia. (6) Alzheimer's dementia Status: Chronic Problem Specific Plan: Monitor Clinically Problem Text: 06/12: At this point it sounds as if family prefers the patient return to his caregiver, but staff has some concerns that the care she provides is too rough for him. 06/08 plan to SNF when LFTs turn around. 06/07 progressive dementia, concerns from family DIL Claudia King who is to Johan, son of the pt, have concerns with care being provided, have attempted to be vocal regarding this in the past with push back from the caregiver. Will need to be determined to be safe with PT before able to be d/c, vs SNF plac ement. 06/02 Note from Neuro 01/08 suggests significant progression, including progressive aphasia, caregiver also c/o sedation, drowsiness. (7) Spastic quadriparesis Status: Chronic Response to Treatment: Stable Discussed With: Nurse, Patient, Health Care Proxy, Family with Pt Consent Problem Specific Plan: Monitor Clinically Problem Text: He has some mobility concerns and may need some durable medical equipment because of his contractures related to the dementia. We discussed this with the family today and scripts were written. (8) Acute metabolic encephalopathy Status: Resolved Response to Treatment: Stable Problem Specific Plan: Monitor Clinically Problem Text: 06/05/18: awake, cooperative this am, eating breakfast assisted by nursing staff. secondary to sepsis (9) Hypernatremia Status: Resolved Problem Specific Plan: Monitor Clinically Problem Text: pt not taking anything PO, I suspect this is contributing to his elevated Na, he has IVF ordered, cont to monitor. Plan/VTE VTE Prophylaxis Ordered?: Yes Plan Family Medicine Attending Note: I saw and examined Mr. King, discussed with RENETTA Montaño. Agree with her note as documented. We are working to get him some DME including a Sriram lift, hospital bed, and a home access ramp. 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 He has some function, and may occasionally be able to do things, but he can not use any of his four limbs consistently enough to sustain function.Specifically, he needs a hospital bed to assist with the positioning of his body in a way that can not be done with an ordinary bed. This is to help prevent the development of unusual pressure points and decubitus ulcers as long as he has frequent changes in his body position. It should also help alleviate pain since he will not be able to hold a position on his own, so a bed that can be positioned for him should help. As soon as these things are available for him he can be discharged. 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) VS, I&O, 24H, Fishbone Vital Signs/I&O Vital Signs Date Time Temp Pulse Resp B/P (MAP) Pulse Ox O2 Delivery O2 Flow Rate FiO2 06/13/18 22:00 98.2 80 18 104/58 (73) 97 I&O- Last 24 Hours up to 6 AM 06/14/18 06:00 Intake Total 2760 ml Output Total 0 ml Balance 2760 ml Laboratory Data 24H LABS Laboratory Tests 2 06/14/18 05:46: Immature Granulocyte % (Auto) 0.5, White Blood Count 5.7, Red Blood Count 3.19L, Hemoglobin 9.8L, Hematocrit 30.3L, Mean Corpuscular Volume 95.0, Mean Corpuscular Hemoglobin 30.7, Mean Corpuscular Hemoglobin Concent 32.3, Red Cell Distribution Width 12.4, Platelet Count 366, Neutrophils (%) (Auto) 71.0H, Lymphocytes (%) (Auto) 17.4L, Monocytes (%) (Auto) 8.4H, Eosinophils (%) (Auto) 2.5, Basophils (%) (Auto) 0.2, Neutrophils # (Auto) 4.0, Lymphocytes # (Auto) 1.0L, Monocytes # (Auto) 0.5, Eosinophils # (Auto) 0.1, Basophils # (Auto) 0.0, Nucleated Red Blood Cells % (auto) 0.0, Anion Gap 6L, Glomerular Filtration Rate > 60.0, Blood Urea Nitrogen 21H, Creatinine 0.88, Sodium Level 139, Potassium Level 4.2, Chloride Level 104, Carbon Dioxide Level 29, Calcium Level 7.8L, Aspartate Amino Transf (AST/SGOT) 39H, Alanine Aminotransferase (ALT/SGPT) 77, Alkaline Phosphatase 64, Total Bilirubin 0.3, Total Protein 6.2L, Albumin 2.0L, Albumin/Globulin Ratio 0.48L CBC/BMP Laboratory Tests 06/14/18 05:46 Red Blood Count 3.19 L, Mean Corpuscular Volume 95.0, Mean Corpuscular Hemoglobin 30.7, Mean Corpuscular Hemoglobin Concent 32.3, Red Cell Distribution Width 12.4, Neutrophils (%) (Auto) 71.0 H, Lymphocytes (%) (Auto) 17.4 L, Monocytes (%) (Auto) 8.4 H, Eosinophils (%) (Auto) 2.5, Basophils (%) (Auto) 0.2, Neutrophils # (Auto) 4.0, Lymphocytes # (Auto) 1.0 L, Monocytes # (Auto) 0.5, Eosinophils # (Auto) 0.1, Basophils # (Auto) 0.0, Calcium Level 7.8 L, Aspartate Amino Transf (AST/SGOT) 39 H, Alanine Aminotransferase (ALT/SGPT) 77, Alkaline Phosphatase 64, Total Bilirubin 0.3, Total Protein 6.2 L, Albumin 2.0 L Bobbi Ware Jun 14, 2018 07:40 Cy Arellano MD Jun 14, 2018 19:22
[2018-06-14 14:00] VITALS: BP 112/55
[2018-06-15] VITALS: BP 107/64
[2018-06-15 06:00] VITALS: BP 123/74
[2018-06-15] MEDS: RIVAROXABAN 15 MG TAB (XARELTO) PO SCH ×2 (08:54→18:18)
[2018-06-16 06:00] VITALS: BP 112/56
[2018-06-16] MEDS: RIVAROXABAN 15 MG TAB (XARELTO) PO SCH ×2 (07:54→17:05)
[2018-06-16] MEDS ORDERED: XARE15TA PO (10:20)
--- NOTE | 2018-06-16 12:55 | DSES ---
DATE OF ADMISSION: 06/01/2018 DATE OF DISCHARGE: ATTENDING PHYSICIAN: Dr. Cy Arellano PRIMARY CARE PROVIDER: Myrtle Villanueva PA-C HISTORY OF PRESENT ILLNESS: This is a 73-year-old male with a past medical history of progressive dementia, hypertension, benign prostatic hypertrophy (BPH), diverticulosis, and bladder diverticulum who presented to the emergency department from primary care provider's office secondary to worsening agitation, concerns for metabolic encephalopathy. Imaging in the ED proved positive for bilateral infiltrates in the lungs as well as a left lower extremity deep vein thrombosis (DVT). The patient was subsequently admitted to the family medicine service. HOSPITAL COURSE: The patient was placed on ceftaroline, given IV fluids, and started on Lovenox on admission secondary to poor oral intake due to mental status changes in the presence of infection. The patient is status post swallow evaluation. The patient was recommended to have a level 2 solid and regular thin liquids, and was appropriate for oral medications. He was subsequently transitioned to Xarelto at this time. The patient had a blood culture return with Staphylococcus Aureus. Subsequently he was continued on a cephalosporin secondary to sensitivity and received a full 14 day course of antibiotics, which he will finish today. Multiple meetings as well as discussions have been held secondary to the patient's safety at home. It was determined between family and the patient's current caregiver that he will have specific durable medical equipment (DME) in the home to assist with his mobility including a Sriram lift due to the fact that the patient has significant amounts of contractures. Hospice was also considered and they are in the process of working with hospice for potential admission to their service upon discharge from the facility. The patient has remained stable throughout his hospitalization. PROCEDURES: Bedside swallow evaluation. IMAGING: Head CT which showed diffuse volume loss that has progressed. Cysts and polyps in the maxillary sinus. Chest x-ray and chest CT confirming pneumonia. Vascular ultrasound of the left lower extremity confirming deep vein thrombosis (DVT). Liver ultrasound secondary to elevated LFTs which showed no significant abnormalities other than hepatosteatosis. CONSULTS: None. ASSESSMENT/DISCHARGE DIAGNOSES: 1. Sepsis secondary to methicillin-sensitive Staphylococcus aureus (MSSA). 2. Bilateral pneumonia. 3. Elevated liver function tests. 4. Deep vein thrombosis (DVT). 5. Protein calorie malnutrition. 6. Metabolic encephalopathy. SECONDARY DIAGNOSES: Include: 1. Advanced Alzheimer's dementia. 2. Spastic quadriparesis. PLAN: The patient will be discharged once appropriate teaching and safety with transfers and care at home is obtained. Patient and family services (PFS) and physical therapy are working with caregivers to obtain this. Medications as well as further instructions upon discharge will be provided at that time.
[2018-06-17 06:00] VITALS: BP 119/58
[2018-06-17] MEDS: RIVAROXABAN 15 MG TAB (XARELTO) PO SCH ×2 (08:21→18:01)
--- NOTE | 2018-06-18 21:22 | DSES ---
DATE OF ADMISSION: 06/01/2018 DATE OF DISCHARGE: BRIEF HISTORY AND PHYSICAL: The patient is a 73-year-old patient of Patricia Krueger, who has advanced dementia, who was brought into the office by his caregiver, stating that he had been sick the week before with cough, and in the last day or so has become progressively less responsive, not walking or eating, and developed acute swelling in his right leg. He had a fever of 101.8 in the emergency room, and workup showed a deep vein thrombosis (DVT) as well as bilateral infiltrates in a CT of his chest. PAST MEDICAL HISTORY: Significant for advanced dementia. He has 24-hour care. His caregiver and healthcare proxy is Vicky Perrin. HOSPITAL COURSE: 1. The patient was admitted for acute metabolic encephalopathy secondary to infection with criteria for sepsis with a fever, a white count elevated, altered mental status. He was found to have bilateral infiltrates on his chest CT and treated for bilateral pneumonia with intravenous (IV) ceftaroline. IV fluids were given for hypernatremia secondary to hypovolemia. He completed 14 days of antibiotics. His mental status improved to baseline, and his white count normalized. He was afebrile. Respiratory status has remained stable. 2. Right lower extremity DVT. Ultrasound confirmed right lower extremity DVT. Was started on initially on therapeutic Lovenox then switched to Xarelto. He will be discharged home on Xarelto. He needs 15 mg twice a day for 21 days. He has received 10 days here in the hospital. Therefore, he will need 11 more days as an outpatient and then switched 20 mg daily. His hypercoagulability workup was unrevealing, and I suspect his risk factor is immobility. He has not shown any sign of bleeding. His hemoglobin has been stable. 3. Dementia. This is fairly advanced. His oral intake is somewhat poor, and he has developed low albumin related to reduced caloric intake. He has spastic quadriparesis and decreased mobility. The social group worker has been involved in arranging some durable medical equipment at home, including a hospital bed to help with positioning of is body and prevent development of usual pressure points, decubitus ulcers, and allow for frequent changes in body position. Sriram lift has been ordered as well as a home access ramp. His caregiver is Vicky Perrin. She is his healthcare proxy and will be taking him home today. The family is involved. There was a family meeting, and everyone is in agreement with plan for discharge. There is some discussion of potentially considering hospice once the patient is home as well. DISPOSITION: He is stable for discharge home with his 24-hour caregiver, and durable medical equipment is being arranged. Assuming that is all available, he will be able to go home today. Diet is regular. Activity ad priyanka. MEDICATIONS: Xarelto 15 mg twice a day for 11 more days, and he will need to switch 20 mg daily. He will followup in the office to have that new prescription sent. DISCHARGE DIAGNOSES 1. Acute metabolic encephalopathy. 2. Sepsis. 3. Bilateral pneumonia. 4. Right lower extremity deep vein thrombosis. 5. Advanced Alzheimer's dementia. 6. Spastic quadriparesis. 7. Protein calorie malnutrition.
== END 2018-06-17 18:50 | disposition home health service (06) | DRG 871 ==
LOC: M ED 11:52 → EDBD 11:52 → M ED INP 16:13 → M PCU 06-02 06:25 → M MSPAV 06-04 11:29
PROVIDERS: ADMIT Internal Medicine; ATTEND Family Medicine
DX: A41.01 Sepsis due to Methicillin susceptible Staphylococcus aureus (principal); G93.41 Metabolic encephalopathy; J18.9 Pneumonia, unspecified organism; G82.50 Quadriplegia, unspecified; I82.431 Acute embolism and thrombosis of right popliteal vein; E87.0 Hyperosmolality and hypernatremia; E44.0 Moderate protein-calorie malnutrition; F02.80 Dementia in other diseases classified elsewhere, unspecified severity, without behavioral disturbance, psychotic disturbance, mood disturbance, and anxiety; G30.9 Alzheimer's disease, unspecified; I10 Essential (primary) hypertension; Z66 Do not resuscitate; N40.0 Benign prostatic hyperplasia without lower urinary tract symptoms; D53.9 Nutritional anemia, unspecified; K57.90 Diverticulosis of intestine, part unspecified, without perforation or abscess without bleeding; N32.3 Diverticulum of bladder

== ENCOUNTER 2019-03-22 11:40 | Emergency (ER) | payer MEDICARE ==
[~2019-03-22 11:40] MED LIST: D-101000 PO; MULTTAB61 PO; XARE15TA PO
[2019-03-22] MEDS ORDERED: NS 1,000 ML IV ONE (12:15)
[2019-03-22] MEDS ORDERED: IPRATROPIUM 0.5MG/ALBUTEROL 2.5MG INH SOL UD 3ML (DUONEB)(J7620) NEB ONE (12:30)
--- NOTE | 2019-03-22 12:59 | REP ---
CHEST, SINGLE VIEW: Single view of the chest is performed and compared to prior study of 06/01/2018. Previously noted left upper lobe opacity has decreased since prior study. No new infiltrate is seen. Chronically prominent interstitial markings in the right base are unchanged. Heart is normal in size, and there is mild calcification of the thoracic aorta. Mediastinal silhouette is unchanged. IMPRESSION: Decrease in area of parenchymal opacity peripherally in the left upper lobe when compared to the prior study of 06/01/2018. No new infiltrate. Electronically Signed by Fran Tam MD 03/23/2019 12:29 P
[2019-03-22 13:04] LABS: VENOUS BASE EXCESS 1.7 (-2.0-2.0); VENOUS O2 SATURATION 49.2 % (60.0-80.0); VENOUS PARTIAL PRESSURE CO2 50.4 mmHg (38.0-50.0); VENOUS PARTIAL PRESSURE O2 26.7 mmHg (30.0-50.0); VENOUS PH 7.362 UNITS (7.330-7.430); VENOUS STANDARD HCO3 24.7 MEQ/L; VENOUS TOTAL CO2 29.5 MEQ/L (24.0-28.0)
[2019-03-22 13:11] LABS: BASO % 0.1 % (0.0-1.0); EOS % 0.2 % (0.0-3.0); HEMATOCRIT 42.7 % (42.0-52.0); HEMOGLOBIN 13.7 g/dl (13.5-17.5); LYMPH # 1.2 10^3/uL (1.5-5.0); LYMPH % 13.7 % (24.0-44.0); MEAN CORPUSCULAR HEMOGLOBIN 31.2 pg (27.0-33.0); MEAN CORPUSCULAR HGB CONC 32.1 g/dl (32.0-36.5); MEAN CORPUSCULAR VOLUME 97.3 fl (80.0-96.0); MONO # 0.7 10^3/uL (0.0-0.8); MONO % 8.2 % (0.0-5.0); NEUTROPHILS # 6.6 10^3/uL (1.5-8.5); NEUTROPHILS % 77.6 % (36.0-66.0); PLATELET COUNT, AUTOMATED 162 10^3/uL (150-450); RED BLOOD COUNT 4.39 10^6/uL (4.30-6.10); WHITE BLOOD COUNT 8.5 10^3/uL (4.0-10.0)
--- NOTE | 2019-03-22 13:37 | REP ---
CT BRAIN WITHOUT IV CONTRAST: CT brain performed without IV contrast. Coronal reconstruction images are performed. COMPARISON: 06/01/2018. There is again moderate degree of atrophy. Prominent ventricles are unchanged in size. There is no midline shift or mass effect. Minor periventricular ill-defined lucency likely represents some small vessel ischemic change. No acute intracranial hemorrhage or extra-axial fluid collection is seen. There is scattered opacification of bilateral ethmoid air cells compatible with sinusitis. Mild vascular calcifications are seen in the carotid siphons. IMPRESSION: Chronic changes and atrophy. These are stable. No acute intracranial hemorrhage or other acute finding. Ethmoid sinusitis bilaterally. Electronically Signed by Fran Tam MD 03/23/2019 12:30 P
[2019-03-22 13:43] LABS: OSMOLALITY SERUM 295 MOSM/KG (280-301)
[2019-03-22 13:45] LABS: INFLUENZA A AMPLIFICATION NEGATIVE (NEGATIVE); INFLUENZA B AMPLIFICATION NEGATIVE (NEGATIVE)
[2019-03-22 13:54] LABS: ALBUMIN 3.4 GM/DL (3.2-5.2); ALT/SGPT 23 U/L (12-78); BILIRUBIN,DIRECT 0.2 MG/DL (0.0-0.2); BILIRUBIN,TOTAL 0.7 MG/DL (0.2-1.0); CK-MB VALUE MASS 8.8 NG/ML (<3.6); CPK CREATINE PHOSPHOKINASE 1302 U/L (39-308); MB/CK RELATIVE INDEX 0.68 (< OR =4); THYROID STIMULATING HORMONE 0.494 uIU/ML (0.358-3.740); TOTAL PROTEIN 6.8 GM/DL (6.4-8.2); TROPONIN I < 0.02 NG/ML (< 0.10)
[2019-03-22 14:12] LABS: BLOOD UREA NITROGEN 18 MG/DL (7-18); CALCIUM LEVEL 8.7 MG/DL (8.8-10.2); CARBON DIOXIDE LEVEL 32 MEQ/L (21-32); CHLORIDE LEVEL 102 MEQ/L (98-107); GLOMERULAR FILTRATION RATE > 60.0 (>42); GLUCOSE, FASTING 121 MG/DL (70-100); POTASSIUM SERUM 4.5 MEQ/L (3.5-5.1); SODIUM LEVEL 140 MEQ/L (136-145)
[2019-03-22] MEDS ORDERED: AUGM875T28 PO (14:21)
[2019-03-22 14:35] VITALS: BP 142/61
--- NOTE | 2019-03-23 13:18 | ECGEPIP ---
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
== END 2019-03-22 14:39 | disposition home or self-care (01) ==
LOC: M ED 11:40 → EDBD 11:40 → M ED 14:39
DX: R91.8 Other nonspecific abnormal finding of lung field (principal); J01.90 Acute sinusitis, unspecified; I10 Essential (primary) hypertension; N40.0 Benign prostatic hyperplasia without lower urinary tract symptoms; Z79.01 Long term (current) use of anticoagulants

== ENCOUNTER → 2019-03-29 | Outpatient (REF) | payer MEDICARE ==
[~2019-03-29] MED LIST changes: +AUGM875T28 PO
== END ==
LOC: M SFHCADAM 15:08
PROVIDERS: ATTEND Physician Assistant
DX: Z79.899 Other long term (current) drug therapy (principal); B95.2 Enterococcus as the cause of diseases classified elsewhere

== ENCOUNTER 2019-06-20 13:54 | Inpatient (IN) | payer MEDICARE ==
[2019-06-20] MEDS ORDERED: LIDOCAINE 2% 5ML JELLY UROJET TOP ONE (15:00)
[2019-06-20] MEDS ORDERED: NS 1,000 ML IV ONE (15:00)
[2019-06-20 15:07] LABS: BASO % 0.2 % (0.0-1.0); EOS # 0.1 10^3/uL (0.0-0.5); EOS % 2.5 % (0.0-3.0); HEMATOCRIT 37.2 % (42.0-52.0); HEMOGLOBIN 12.2 g/dl (13.5-17.5); LYMPH # 1.2 10^3/uL (1.5-5.0); LYMPH % 23.6 % (24.0-44.0); MEAN CORPUSCULAR HGB CONC 32.8 g/dl (32.0-36.5); MEAN CORPUSCULAR VOLUME 94.7 fl (80.0-96.0); MONO # 0.6 10^3/uL (0.0-0.8); MONO % 12.2 % (0.0-5.0); NEUTROPHILS # 3.2 10^3/uL (1.5-8.5); NEUTROPHILS % 61.3 % (36.0-66.0); PLATELET COUNT, AUTOMATED 244 10^3/uL (150-450); RED BLOOD COUNT 3.93 10^6/uL (4.30-6.10); WHITE BLOOD COUNT 5.2 10^3/uL (4.0-10.0)
[2019-06-20 15:45] LABS: ALBUMIN 2.6 GM/DL (3.2-5.2); ALT/SGPT 29 U/L (12-78); BILIRUBIN,DIRECT 0.1 MG/DL (0.0-0.2); BILIRUBIN,TOTAL 0.4 MG/DL (0.2-1.0); BLOOD UREA NITROGEN 21 MG/DL (7-18); CALCIUM LEVEL 8.3 MG/DL (8.8-10.2); CARBON DIOXIDE LEVEL 29 MEQ/L (21-32); CHLORIDE LEVEL 106 MEQ/L (98-107); CK-MB VALUE MASS 6.4 NG/ML (<3.6); CPK CREATINE PHOSPHOKINASE 952 U/L (39-308); CREATININE FOR GFR 0.95 MG/DL (0.70-1.30); GLOMERULAR FILTRATION RATE > 60.0 (>42); GLUCOSE, FASTING 113 MG/DL (70-100); MB/CK RELATIVE INDEX 0.67 (< OR =4); POTASSIUM SERUM 4.5 MEQ/L (3.5-5.1); SODIUM LEVEL 141 MEQ/L (136-145); THYROID STIMULATING HORMONE 0.236 uIU/ML (0.358-3.740); TOTAL PROTEIN 5.9 GM/DL (6.4-8.2); TROPONIN I < 0.02 NG/ML (< 0.10)
--- NOTE | 2019-06-20 15:53 | REP ---
CT BRAIN WITHOUT CONTRAST: HISTORY: Altered mental status. Comparison CT study March 22, 2019. CT FINDINGS: Digital preliminary group controller radiograph is unremarkable. The patient is edentulous. The bony calvarium remains intact. Visualized paranasal sinuses are clear. No intraorbital abnormality is seen. On soft tissue window settings, there is moderate generalized volume loss and concordant ventricular enlargement unchanged from comparison study. There is no evidence of intracranial hemorrhage. No mass, extra-axial fluid collection, or acute infarction has developed. No midline shift is seen. IMPRESSION: Generalized atrophy and concordant ventricular enlargement unchanged. No acute intracranial abnormality seen. Electronically Signed by Yang Calabrese MD 06/20/2019 05:05 P
--- NOTE | 2019-06-20 16:33 | REP ---
CHEST, SINGLE VIEW: Single view of the chest is performed and compared to prior study of 03/22/2019. Mild scattered fibrotic changes appear stable. There is slight elevation of the left hemidiaphragm. There is no acute infiltrate or pulmonary edema. The heart is normal in size. Mediastinal silhouette is unchanged. IMPRESSION: Stable chronic changes without evidence of acute infiltrate. Electronically Signed by Fran Tam MD 06/21/2019 10:16 A
--- NOTE | 2019-06-20 16:47 | ECGEPIP ---
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
[2019-06-20] MEDS ORDERED: XARE20TA PO (17:12)
[2019-06-20] MEDS ORDERED: VITMTA PO (17:12)
[2019-06-20] MEDS ORDERED: MOM 30ML SUSPENSION UDC PO PRN (17:15)
--- NOTE | 2019-06-20 17:42 | HPEPDOC ---
[facility] Medical History & Physical Date of Admission Jun 20, 2019 Date of Service: Jun 20, 2019 Attending Physician: RAFY HURTADO MD History and Physical CHIEF COMPLAINT: Inability to ambulate HISTORY OF PRESENT ILLNESS: 74 yo man with Progressive Dementia, HTN, BPH, history of diverticulosis and bladder diverticulum, nonverbal at baseline, as well as a history of DVT on xarelto who presented to the ED with his HCP/POA reporting that he has been unable to ambulate for the past 4 days. At baseline, he walked to the bathroom with standby assist but has been unable to get out of bed. 3days ago he had a fever to 102.4 without any focal symptoms and she gave him left over augmentin for 3d with resolution of fever but continued inability to ambulate at all. This worried her and has complicated her ability to care for him such that she brought him to the ED. In the ED, he is hemodynamically stable and afebrile and breathing comfortably on room air. His work up was notable only for a CK 952 with an otherwwise unremarkable work up. WBC 5.2, hgb 12.2, platelets 244, lactate 1.1, Na 144, K 4.5, Cr 0.95, troponin wnl, EKG with NSR, UA with a few WBC and RBCs (<5) withou t bacteria or leukoesterase or nitrites, head CT without acute pathology and CXR without acute cardiopulmonary process. He was given 1L NS and admitted to medicine. Past Medical History: Progressive Dementia, follows with Neurology HTN BPH Hx of Diverticulosis Bladder Diverticulum Hx of DVT Surgical History Rotator cuff tear on the right side in 2005 Colonoscopy in 2009 Reduction and internal fixation of left wrist fracture in the Left knee surgery in 1999 Social History Nonsmoker No alcohol Lives at home with HCP Vicky who was present at bedside during ED evaluation Review of Systems: Unable to be obtained Vital Signs: see below. HDS, afebrile, breathing comfortably on room air - General: Lying in bed, does not appear to be in any distress, nonverbal - HEENT: NC, AT, Pupils reactive, edentulous - CVS: RRR, +S1S2, no mrg - Lungs: CTAB, no wheezing, rales or rhonchi - Abdomen: Normoactive bowel sounds, soft, NTND - Extremities: WWP, no LE edema - Neuro: Appears to move all 4 extremities spontaneously, tracks my fingers, nonverbal - Skin: Several scabs in multiple stages of healing, mot notable on forehead 74 yo M with progressive dementia with acute inability to ambulate, with an associated episode of fever that has been treated for 3d with augmentin whose workup thus far is grossly benign with mild CK elevation with normal Cr. Mild rhabdo: 2/2 to being in the same position -s/p 1L NS -continue at 100cc/hr for another 1L Acute inability to ambulate - possibly 2/2 infection vs. volume contraction vs. worsening deconditioning - Unfortunately infectious workup is affected by the 3d of augmentin as it is unremarkable at this time, will draw blood cultures. Urine was bland, CXR was clear and lactate was wnl - Likely patients underlying dementia has a contribution to his declining functional status - Patient is only responsive to pain; appears to move all 4 extremities - CT head was without hemorrhage, acute infarct or mass, with previously noted diffuse volume loss - PT/OT evaluation History of DVT - continue rivaroxaban Hx of HTN - BP appears well controlled - Does not appear to be on any medications as an outpatient Hx of BPH - Not on any medications as an outpatient Hx of Diverticulosis -will monitor H/H with daily CBC Bladder Diverticulum -not currently clinically causing concern DVT prophylaxis : xarelto full dose Diet: mechanical soft DIspo: medsurg with PT/OT pending Vital Signs Vital Signs Date Time Temp Pulse Resp B/P (MAP) Pulse Ox O2 Delivery O2 Flow Rate FiO2 06/20/19 16:57 61 101/53 (69) 100 06/20/19 16:15 19 06/20/19 14:24 Room Air 06/20/19 13:55 98.5 Laboratory Data Labs 24H Laboratory Tests 2 06/20/19 14:46: Immature Granulocyte % (Auto) 0.2, Neutrophils (%) (Auto) 61.3, Lymphocytes (%) (Auto) 23.6L, Monocytes (%) (Auto) 12.2H, Eosinophils (%) (Auto) 2.5, Basophils (%) (Auto) 0.2, Neutrophils # (Auto) 3.2, Lymphocytes # (Auto) 1.2L, Monocytes # (Auto) 0.6, Eosinophils # (Auto) 0.1, Basophils # (Auto) 0.0, Nucleated Red Blood Cells % (auto) 0.0, Anion Gap 6L, Glomerular Filtration Rate > 60.0, Lactic Acid Level 1.1, Calcium Level 8.3L, Total Bilirubin 0.4, Direct Bilirubin 0.1, Aspartate Amino Transf (AST/SGOT) 41H, Alanine Aminotransferase (ALT/SGPT) 29, Alkaline Phosphatase 38L, Total Creatine Kinase 952H, Creatine Kinase MB 6.4H, Creatine Kinase MB Relative Index 0.67, Troponin I < 0.02, Total Protein 5.9L, Albumin 2.6L, Albumin/Globulin Ratio 0.79L, Thyroid Stimulating Hormone (TSH) 0.236L 06/20/19 14:50: Urine Color YELLOW, Urine Appearance CLEAR, Urine pH 5.0, Urine Specific [place] 1.023, Urine Protein NEGATIVE, Urine Glucose (UA) NEGATIVE, Urine Ketones NEGATIVE, Urine Blood 1+H, Urine Nitrite NEGATIVE, Urine Bilirubin NEGATIVE, Urine Urobilinogen 0.2, Urine Leukocyte Esterase NEGATIVE, Urine WBC (Auto) 5H, Urine RBC (Auto) 4H, Urine Hyaline Casts (Auto) 0, Urine Bacteria (Auto) NEGATIVE, Urine Squamous Epithelial Cells 0, Urine Mucus (Auto) SMALL, Urine Sperm (Auto) CBC/BMP Laboratory Tests 06/20/19 14:46 Home Medications Scheduled Multivitamins (Thera M Plus Tablet) 1 Each Tablet, 1 TAB PO DAILY Rivaroxaban (Xarelto) 20 Mg Tablet, 20 MG PO DAILY Allergies Coded Allergies: No Known Allergies (Unverified , 06/01/18) A-FIB/CHADSVASC A-FIB History Current/History of A-Fib/PAF?: No Current PO Anticoag Therapy: Yes RAFY HURTADO MD Jun 20, 2019 17:42
[2019-06-20 18:45] VITALS: BP 127/66
[2019-06-20 22:00] VITALS: BP 125/66
[2019-06-21 06:00] VITALS: BP 129/58
[2019-06-21 06:10] LABS: HEMATOCRIT 34.4 % (42.0-52.0); HEMOGLOBIN 11.1 g/dl (13.5-17.5); MEAN CORPUSCULAR HEMOGLOBIN 30.3 pg (27.0-33.0); MEAN CORPUSCULAR HGB CONC 32.3 g/dl (32.0-36.5); PLATELET COUNT, AUTOMATED 227 10^3/uL (150-450); RED BLOOD COUNT 3.66 10^6/uL (4.30-6.10); WHITE BLOOD COUNT 5.6 10^3/uL (4.0-10.0)
[2019-06-21 06:38] LABS: BLOOD UREA NITROGEN 19 MG/DL (7-18); CALCIUM LEVEL 8.3 MG/DL (8.8-10.2); CARBON DIOXIDE LEVEL 26 MEQ/L (21-32); CHLORIDE LEVEL 107 MEQ/L (98-107); CREATININE FOR GFR 0.89 MG/DL (0.70-1.30); GLOMERULAR FILTRATION RATE > 60.0 (>42); GLUCOSE, FASTING 100 MG/DL (70-100); MAGNESIUM LEVEL 2.2 MG/DL (1.8-2.4); POTASSIUM SERUM 4.3 MEQ/L (3.5-5.1); SODIUM LEVEL 140 MEQ/L (136-145)
[2019-06-21 07:55] LABS: CPK CREATINE PHOSPHOKINASE 685 U/L (39-308)
[2019-06-21] MEDS: NS 1,000 ML IV SCH ×2 (08:03→19:34)
[2019-06-21] MEDS: MULTIVITAMINS/MINERALS THERAP 1 TAB PO SCH (08:03)
[2019-06-21] MEDS: RIVAROXABAN 20 MG TAB (XARELTO) PO SCH (08:03)
[2019-06-21 14:00] VITALS: BP 123/60
--- NOTE | 2019-06-21 14:21 | REP ---
CT ABDOMEN AND PELVIS WITHOUT CONTRAST: CT abdomen and pelvis performed without oral or IV contrast. Sagittal and coronal reconstruction images are performed. Comparison made with a prior CT of the chest 06/01/2018. There is a moderate right pleural effusion with mild adjacent right base atelectasis/infiltrate. The liver is grossly unremarkable. Gallbladder is filled with calculi with no definite pericholecystic edema. The spleen is normal in size. The adrenal glands are normal. In the head of the pancreas, there is a cystic structure with a maximum diameter of 2.1 cm. This appears unchanged compared to the prior CT of the chest 06/01/2018. Horseshoe kidney is noted. There is no hydronephrosis. Ureters are not dilated. There is a cyst in the mid aspect of the horseshoe kidney measuring 5.3 cm in diameter. Mild atherosclerotic calcification is seen of the abdominal aorta without aneurysm. There is no adenopathy. There is no free air or free fluid. There is no bowel wall thickening. There is no evidence for bowel obstruction. There is sigmoid diverticulosis without evidence of acute diverticulitis. I see no evidence of appendicitis. Multiple small stones are seen in the dependent portion of the urinary bladder and there is a large diverticulum at the left base of the bladder. A small right inguinal hernia contains a small amount of fluid. There are degenerative changes of the spine. There is spondylolysis of L5 with anterior grade 1 spondylolisthesis of L5 on S1. IMPRESSION: Moderate right pleural effusion with mild adjacent right base atelectasis/infiltrate. Gallbladder is filled with stones with no definite edema or surrounding free fluid. Low density structure in the head of the pancreas measuring 2.1 cm in diameter is unchanged since 06/01/2018. Recommend continued followup. 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 There is a renal cyst noted. No free air or free fluid. Multiple small bladder calculi with a large bladder diverticulum. Sigmoid diverticulosis. No acute diverticulitis. No other acute finding. Electronically Signed by Fran Tam MD 06/21/2019 02:45 P
--- NOTE | 2019-06-21 18:00 | IPNPDOC ---
Text Note Date of Service The patient was seen on 06/21/19. NOTE Subjective: -No issues overnight Objective: Vital Signs: see below. HDS, afebrile, breathing comfortably on room air - General: Lying in bed, does not appear to be in any distress, nonverbal - HEENT: NC, AT, Pupils reactive, edentulous - CVS: RRR, +S1S2, no mrg - Lungs: CTAB, no wheezing, rales or rhonchi - Abdomen: Normoactive bowel sounds, soft, NTND - Extremities: WWP, no LE edema - Neuro: Appears to move all 4 extremities spontaneously - Skin: Several scabs in multiple stages of healing, dry linear scab on forehead labs: reviewed. CBC and BMP wnl CT A/P: Moderate right pleural effusion with mild adjacent right base atelectasis/infiltrate. Gallbladder is filled with stones with no definite edema or surrounding free fluid. Low density structure in the head of the pancreas measuring 2.1 cm in diameter is unchanged since 06/01/2018. Recommend continued followup. 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 There is a renal cyst noted. No free air or free fluid. Multiple small bladder calculi with a large bladder diverticulum. Sigmoid diverticulosis. No acute diverticulitis. No other acute finding. Assessment: 74 yo M with progressive dementia with acute inability to ambulate, with an associated episode of fever that has been treated for 3d with augmentin whose workup thus far is grossly benign with mild CK elevation with normal Cr. Mild rhabdo: 2/2 to being in the same position - s/p 2L NS Acute inability to ambulate - possibly 2/2 infection vs. volume contraction vs. worsening deconditioning - Unfortunately infectious workup is affected by the 3d of augmentin as it is unremarkable at this time, will draw blood cultures. Urine was bland, CXR was clear and lactate was wnl - Likely patients underlying dementia has a contribution to his declining functional status - Patient is only responsive to pain; appears to move all 4 extremities - CT head was without hemorrhage, acute infarct or mass, with previously noted diffuse volume loss - PT/OT evaluation -CT A/P done today because HCP reported grimacing with holding of abdomen at home with PO --> it showed a stable pancreatic structure and moderate R pleural effusion with adjacent atelectasis vs. infiltrate --> will order procalcitonin, defer antibiotics for now without magdi evidence of ongoing infection - Per PT not following commands to perform tasks, possibility that the inability to ambulate is a consequence of progression of his alzheimer's History of DVT - continue rivaroxaban Hx of HTN - BP appears well controlled - Does not appear to be on any medications as an outpatient Hx of BPH - Not on any medications as an outpatient Hx of Diverticulosis -will monitor H/H with daily CBC Bladder Diverticulum -not currently clinically causing concern DVT prophylaxis : xarelto full dose Diet: mechanical soft, speech evaluated and recommended continuation of current diet DIspo: medsurg with PT/OT evaluation VS,Fishbone, I+O VS, Fishbone, I+O Laboratory Tests 06/20/19 14:46 06/21/19 05:56 Vital Signs Date Time Temp Pulse Resp B/P (MAP) Pulse Ox O2 Delivery O2 Flow Rate FiO2 06/21/19 06:00 99.5 87 18 129/58 (81) 96 Room Air I&O- Last 24 Hours up to 6 AM 06/21/19 06:00 Intake Total 1120 ml Output Total 50 ml Balance 1070 ml RAFY HURTADO MD Jun 21, 2019 07:43
[2019-06-21 20:00] VITALS: BP 114/59
[2019-06-22 06:05] VITALS: BP 142/78
[2019-06-22 07:03] LABS: HEMATOCRIT 34.8 % (42.0-52.0); HEMOGLOBIN 11.5 g/dl (13.5-17.5); MEAN CORPUSCULAR HEMOGLOBIN 31.3 pg (27.0-33.0); MEAN CORPUSCULAR VOLUME 94.6 fl (80.0-96.0); PLATELET COUNT, AUTOMATED 223 10^3/uL (150-450); RED BLOOD COUNT 3.68 10^6/uL (4.30-6.10); WHITE BLOOD COUNT 5.7 10^3/uL (4.0-10.0)
[2019-06-22] MEDS: MULTIVITAMINS/MINERALS THERAP 1 TAB PO SCH (11:10)
[2019-06-22] MEDS: RIVAROXABAN 20 MG TAB (XARELTO) PO SCH (11:10)
[2019-06-22 14:00] VITALS: BP 127/61
--- NOTE | 2019-06-22 16:38 | IPNPDOC ---
Text Note Date of Service The patient was seen on 06/22/19. NOTE Subjective: -No issues overnight -Non verbal and contracted, difficult to see how this could have all culminated in 5 days -Not taking much PO today as he did yesterday, no breakfast, at 30% of lunch Objective: Vital Signs: see below. HDS, afebrile, breathing comfortably on room air - General: Lying in bed, does not appear to be in any distress, nonverbal - HEENT: NC, AT, Pupils reactive, edentulous - CVS: RRR, +S1S2, no mrg - Lungs: CTAB, no wheezing, rales or rhonchi - Abdomen: Normoactive bowel sounds, soft, NTND - Extremities: WWP, no LE edema - Neuro: Appears to move all 4 extremities spontaneously, however when still, - Skin: Several scabs in multiple stages of healing, dry linear scab on forehead. R hip with unstagable purplish pressure ulcer labs: reviewed. CBC wnl, BMP pending CT A/P: Moderate right pleural effusion with mild adjacent right base atelect asis/infiltrate. Gallbladder is filled with stones with no definite edema or surrounding free fluid. Low density structure in the head of the pancreas measuring 2.1 cm in diameter is unchanged since 06/01/2018. Recommend continued followup. 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 There is a renal cyst noted. No free air or free fluid. Multiple small bladder calculi with a large bladder diverticulum. Sigmoid diverticulosis. No acute diverticulitis. No other acute finding. Assessment: 74 yo M with progressive dementia with acute inability to ambulate, with an associated episode of fever that has been treated for 3d with augmentin whose workup thus far is grossly benign with mild CK elevation with normal Cr. Mild rhabdo: 2/2 to being in the same position - s/p 2L NS -check BMP now that fluids have been held Acute inability to ambulate - possibly 2/2 infection vs. volume contraction vs. worsening deconditioning. Given the contraction, suspect this might not have occurred in 4 days? - Unfortunately infectious workup is affected by the 3d of augmentin as it is un remarkable at this time, will draw blood cultures. Urine was bland, CXR was clear and lactate was wnl - Likely patients underlying dementia has a contribution to his declining functional status - Patient is only responsive to pain; appears to move all 4 extremities - CT head was without hemorrhage, acute infarct or mass, with previously noted diffuse volume loss - PT/OT evaluation -CT A/P done today because HCP reported grimacing with holding of abdomen at home with PO --> it showed a stable pancreatic structure and moderate R pleural effusion with adjacent atelectasis vs. 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 PFS onboard VS,Fishbone, I+O VS, Fishbone, I+O Laboratory Tests 06/22/19 06:49 Vital Signs Date Time Temp Pulse Resp B/P (MAP) Pulse Ox O2 Delivery O2 Flow Rate FiO2 06/22/19 06:05 97.6 75 18 142/78 (99) 96 Room Air I&O- Last 24 Hours up to 6 AM 06/22/19 06:00 Intake Total 3120 ml Balance 3120 ml RAFY HURTADO MD June 22, 2019 16:38
[2019-06-22 20:00] VITALS: BP 108/75
[2019-06-23 06:00] VITALS: BP 104/65
[2019-06-23 06:53] LABS: HEMATOCRIT 35.1 % (42.0-52.0); HEMOGLOBIN 11.6 g/dl (13.5-17.5); MEAN CORPUSCULAR HEMOGLOBIN 30.8 pg (27.0-33.0); MEAN CORPUSCULAR VOLUME 93.1 fl (80.0-96.0); PLATELET COUNT, AUTOMATED 249 10^3/uL (150-450); RED BLOOD COUNT 3.77 10^6/uL (4.30-6.10); WHITE BLOOD COUNT 5.3 10^3/uL (4.0-10.0)
[2019-06-23 06:54] LABS: BLOOD UREA NITROGEN 16 MG/DL (7-18); CALCIUM LEVEL 8.5 MG/DL (8.8-10.2); CARBON DIOXIDE LEVEL 27 MEQ/L (21-32); CHLORIDE LEVEL 107 MEQ/L (98-107); CREATININE FOR GFR 0.82 MG/DL (0.70-1.30); GLOMERULAR FILTRATION RATE > 60.0 (>42); GLUCOSE, FASTING 93 MG/DL (70-100); POTASSIUM SERUM 3.8 MEQ/L (3.5-5.1); SODIUM LEVEL 139 MEQ/L (136-145)
[2019-06-23] MEDS: RIVAROXABAN 20 MG TAB (XARELTO) PO SCH (09:13)
[2019-06-23] MEDS: MULTIVITAMINS/MINERALS THERAP 1 TAB PO SCH (09:13)
[2019-06-23] MEDS: ACETAMINOPHEN TAB 650MG DOSE (2X325MG) PO PRN (09:14)
[2019-06-23] MEDS: NS 1,000 ML IV SCH ×2 (09:14→23:35)
[2019-06-23 14:00] VITALS: BP 118/74
--- NOTE | 2019-06-23 17:11 | IPNPDOC ---
Text Note Date of Service The patient was seen on 06/23/19. NOTE Subjective: -No issues overnight, no changes, contracted, non verbal, poor PO at this time Objective: Vital Signs: see below. HDS, afebrile, breathing comfortably on room air - General: Lying in bed, does not appear to be in any distress, nonverbal - HEENT: NC, AT, Pupils reactive, edentulous - CVS: RRR, +S1S2, no mrg - Lungs: CTAB, no wheezing, rales or rhonchi - Abdomen: Normoactive bowel sounds, soft, NTND - Extremities: WWP, no LE edema - Neuro: Appears to move extremities spontaneously when blanlet is removed, to replace it, however mantaining a contracted posture in position, unclear chronicity - Skin: Several scabs in multiple stages of healing, dry linear scab on forehead. R hip with unstagable purplish pressure ulcer labs: reviewed. CBC and BMP wnl CT A/P: Moderate right pleural effusion with mild adjacent right base atelectasis/infiltrate. Gallbladder is filled with stones with no definite edema or surrounding free fluid. Low density structure in the head of the pancreas measuring 2.1 cm in diameter is unchanged since 06/01/2018. Recommend continued followup. 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 There is a renal cyst noted. No free air or free fluid. Multiple small bladder calculi with a large bladder diverticulum. Sigmoid diverticulosis. No acute diverticulitis. No other acute finding. Assessment: 74 yo M with progressive dementia with acute inability to ambulate, with an associated episode of fever that has been treated for 3d with augmentin whose workup thus far is grossly benign with mild CK elevation with normal Cr. Mild rhabdo: Likely 2/2 to being in the same position -s/p 2L NS -continue fluids at 75cc/hr for poor fluid intake since all is assisted Acute inability to ambulate -Unlikely to be 2/2 infection with negative workup vs. volume contraction vs. worsening deconditioning. Given the contraction, suspect this might not have occurred in 4 days? - Unfortunately infectious workup is affected by the 3d of augmentin as it is unremarkable at this time, blood cultures negative, urine was bland, CXR was clear, lactate and procal were wnl - Likely patients underlying dementia has a contribution to his declining functional status - Patient is only responsive to pain; appears to move arms when blanket is rolled back - CT head was without hemorrhage, acute infarct or mass, with previously noted diffuse volume loss - PT/OT evaluation discontinued without any engagement -CT A/P after HCP reported grimacing with holding of abdomen at home with PO, showed a stable pancreatic structure and moderate R pleural effusion with adjacent atelectasis vs. 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 PFS onboard to discuss possibility of placement with HCP given no improvement in his ambulation without a clear reversible etiology VS,Fishbone, I+O VS, Fishbone, I+O Laboratory Tests 06/23/19 06:02 Vital Signs Date Time Temp Pulse Resp B/P (MAP) Pulse Ox O2 Delivery O2 Flow Rate FiO2 06/23/19 06:00 98.0 72 18 104/65 (78) 97 Room Air I&O- Last 24 Hours up to 6 AM 06/23/19 05:59 Intake Total 620 ml Balance 620 ml RAFY HRUTADO MD June 23, 2019 09:05
[2019-06-23 20:00] VITALS: BP 106/62
[2019-06-24 06:00] VITALS: BP 111/56
[2019-06-24 06:12] LABS: HEMATOCRIT 32.9 % (42.0-52.0); MEAN CORPUSCULAR HEMOGLOBIN 31.3 pg (27.0-33.0); MEAN CORPUSCULAR HGB CONC 33.4 g/dl (32.0-36.5); MEAN CORPUSCULAR VOLUME 93.7 fl (80.0-96.0); PLATELET COUNT, AUTOMATED 238 10^3/uL (150-450); RED BLOOD COUNT 3.51 10^6/uL (4.30-6.10); WHITE BLOOD COUNT 5.5 10^3/uL (4.0-10.0)
[2019-06-24 06:32] LABS: BLOOD UREA NITROGEN 17 MG/DL (7-18); CALCIUM LEVEL 7.9 MG/DL (8.8-10.2); CARBON DIOXIDE LEVEL 26 MEQ/L (21-32); CHLORIDE LEVEL 109 MEQ/L (98-107); GLOMERULAR FILTRATION RATE > 60.0 (>42); GLUCOSE, FASTING 101 MG/DL (70-100); POTASSIUM SERUM 3.9 MEQ/L (3.5-5.1); SODIUM LEVEL 139 MEQ/L (136-145)
[2019-06-24] MEDS: MULTIVITAMINS/MINERALS THERAP 1 TAB PO SCH (08:35)
[2019-06-24] MEDS: NS 1,000 ML IV SCH ×2 (08:35→20:40)
[2019-06-24] MEDS: RIVAROXABAN 20 MG TAB (XARELTO) PO SCH (08:35)
--- NOTE | 2019-06-24 12:11 | IPNPDOC ---
Text Note Date of Service The patient was seen on 06/24/19. NOTE Subjective: -No changes, contracted, non verbal -Taking good PO today per nursing Objective: Vital Signs: see below. HDS, afebrile, breathing comfortably on room air - General: Lying in bed, does not appear to be in any distress, nonverbal - HEENT: NC, AT, Pupils reactive, edentulous - CVS: RRR, +S1S2, no mrg - Lungs: CTAB, no wheezing, rales or rhonchi - Abdomen: Normoactive bowel sounds, soft, NTND - Extremities: WWP, no LE edema - Neuro: Appears to move extremities spontaneously when blanket is pulled back, to replace it, however maintaining a contracted posture - Skin: Several scabs in multiple stages of healing, dry linear scab on forehead. R hip with unstageable purplish pressure sore labs: reviewed. CBC and BMP wnl CT A/P: Moderate right pleural effusion with mild adjacent right base atelectasis/infiltrate. Gallbladder is filled with stones with no definite edema or surrounding free fluid. Low density structure in the head of the pancreas measuring 2.1 cm in diameter is unchanged since 06/01/2018. Recommend continued followup. 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 There is a renal cyst noted. No free air or free fluid. Multiple small bladder calculi with a large bladder diverticulum. Sigmoid diverticulosis. No acute diverticu litis. No other acute finding. Assessment: 74 yo M with progressive dementia with acute inability to ambulate, with an associated episode of fever that has been treated for 3d with augmentin whose w orkup thus far is grossly benign with mild CK elevation with normal Cr. Mild rhabdo: Likely 2/2 to being in the same position -s/p 2L NS -continue fluids at 75cc/hr for poor fluid intake since all PO is assisted Acute inability to ambulate -Unlikely to be 2/2 infection with negative workup vs. volume contraction vs. worsening deconditioning. Given the contraction, suspect this might not have occurred in 4 days? - Unfortunately infectious workup is affected by the 3d of augmentin as it is unremarkable at this time, blood cultures negative, urine was bland, CXR was clear, lactate and procal were wnl - Likely patients underlying dementia has a contribution to his declining functional status - Patient is only responsive to pain; appears to move arms when blanket is rolled back - CT head was without hemorrhage, acute infarct or mass, with previously noted diffuse volume loss - PT/OT evaluation discontinued without any engagement -CT A/P after HCP reported grimacing with holding of abdomen at home with PO, showed a stable pancreatic structure and moderate R pleural effusion with duran cent atelectasis vs. infiltrate --> procalcitonin pending, defer antibiotics without magdi evidence of ongoing infection - Per PT not following commands to perform tasks, possibility that the inability to ambulate is a consequence of progression of his alzheimer's -PFS consulted, need to discuss the idea of placement with the HCP History of DVT - continue rivaroxaban Hx of HTN - BP appears well controlled - Does not appear to be on any medications as an outpatient and normotensive Hx of BPH - Not on any medications as an outpatient Hx of Diverticulosis -will monitor H/H with daily CBC Bladder Diverticulum -not currently clinically causing concern DVT prophylaxis : xarelto full dose Diet: mechanical soft, speech evaluated and recommended continuation of current diet DIspo: medsurg pending PFS discussion with HCP about potential placement given no improvement in his ambulation without a clear reversible etiology VS,Fishbone, I+O VS, Fishbone, I+O Laboratory Tests 06/24/19 05:53 Vital Signs Date Time Temp Pulse Resp B/P (MAP) Pulse Ox O2 Delivery O2 Flow Rate FiO2 06/24/19 06:00 96.3 64 18 111/56 (74) 97 Room Air I&O- Last 24 Hours up to 6 AM 06/24/19 06:00 Intake Total 1560 ml Balance 1560 ml RAFY HURTADO MD June 24, 2019 08:35
[2019-06-24 14:00] VITALS: BP 112/68
[2019-06-24 22:00] VITALS: BP 139/72
[2019-06-25 06:00] VITALS: BP 141/74
[2019-06-25 06:07] LABS: HEMATOCRIT 37.2 % (42.0-52.0); HEMOGLOBIN 12.2 g/dl (13.5-17.5); MEAN CORPUSCULAR HEMOGLOBIN 30.9 pg (27.0-33.0); MEAN CORPUSCULAR HGB CONC 32.8 g/dl (32.0-36.5); MEAN CORPUSCULAR VOLUME 94.2 fl (80.0-96.0); PLATELET COUNT, AUTOMATED 251 10^3/uL (150-450); RED BLOOD COUNT 3.95 10^6/uL (4.30-6.10); WHITE BLOOD COUNT 5.6 10^3/uL (4.0-10.0)
[2019-06-25 06:41] LABS: BLOOD UREA NITROGEN 13 MG/DL (7-18); CALCIUM LEVEL 8.4 MG/DL (8.8-10.2); CARBON DIOXIDE LEVEL 27 MEQ/L (21-32); CHLORIDE LEVEL 108 MEQ/L (98-107); GLOMERULAR FILTRATION RATE > 60.0 (>42); GLUCOSE, FASTING 92 MG/DL (70-100); POTASSIUM SERUM 4.4 MEQ/L (3.5-5.1); SODIUM LEVEL 140 MEQ/L (136-145)
[2019-06-25] MEDS: MULTIVITAMINS/MINERALS THERAP 1 TAB PO SCH (08:11)
[2019-06-25] MEDS: RIVAROXABAN 20 MG TAB (XARELTO) PO SCH (08:12)
--- NOTE | 2019-06-25 13:40 | IPNPDOC ---
Text Note Date of Service The patient was seen on 06/25/19. NOTE Subjective: No changes, contracted both legs, upper extremities moving freely, non verbal, unable to work with PT as unable to follow instructions, Taking good PO today. Patient was chewing on the blanket. He tried to bite my stethoscope during exam. Objective: Vital Signs: see below. General: Lying in bed, does not appear to be in any distress, nonverbal, chewing the blanket HEENT: NC, AT, Pupils reactive, edentulous CVS: RRR, +S1S2, no mrg Lungs: CTAB, no wheezing, rales or rhonchi Abdomen: Normoactive bowel sounds, soft, NTND Extremities: Bipedal edema upto the ankles. Neuro: Appears to move extremities spontaneously when blanket is pulled back, to replace it, however maintaining a contracted posture Skin: Several scabs in multiple stages of healing, dry linear scab on forehead. R hip with unstageable pressure sore Labs and radiology: reviewed. CT A/P: Moderate right pleural effusion with mild adjacent right base atelectasis/infiltrate. Gallbladder is filled with stones with no definite edema or surrounding free fluid. Low density structure in the head of the pancreas measuring 2.1 cm in diameter is unchanged since 06/01/2018. Recommend continued followup. 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 There is a renal cyst noted. No free air or free fluid. Multiple small bladder calculi with a large bladder diverticulum. Sigmoid diverticulosis. No acute diverticulitis. No other acute finding. Assessment: 74 yo M with progressive dementia with acute inability to ambulate, with an associated episode of fever that has been treated for 3d with augmentin whose workup thus far is grossly benign with mild CK elevation with normal Cr. Mild rhabdo resolved Dementia advanced, nonverbal, does not follow commands, nonambulatory good eater, but needs feeding. CT head was without hemorrhage, acute infarct or mass, with previously noted diffuse volume loss Diet mechanical soft, speech evaluated and recommended continuation of current diet Acute inability to ambulate -Unlikely to be 2/2 infection with negative workup vs. volume contraction vs. worsening deconditioning. Given the contraction, suspect this might not have occurred in 4 days? Unfortunately infectious workup is affected by the 3d of augmentin as it is unremarkable at this time, blood cultures negative, urine was bland, CXR was clear, lactate and procal were wnl Likely patients underlying dementia has a contribution to his declining functional status PT/OT evaluation discontinued without any engagement PFS consulted, need to discuss the idea of placement with the HCP Fluid overload Right Pleural effusion with adjacent atelectasis vs infiltrate received 3 days of augmentin as outpatient No signs of active infection at present. No SOB, No hypoxia. will give lasix. History of DVT continue rivaroxaban Hx of HTN BP appears well controlled Does not appear to be on any medications as an outpatient and normotensive Hx of BPH Not on any medications as an outpatient Hx of Diverticulosis will monitor H/H with daily CBC Bladder Diverticulum and bladder stones -not currently clinically causing concern Horseshoe Kidney with no obstruction Cystic lesion at head of pancreas stable since 2018 DVT prophylaxis : xarelto full dose DIspo: pending PFS discussion with HCP about potential placement given no improvement in his ambulation without a clear reversible etiology VS,Fishbone, I+O VS, Fishbone, I+O Laboratory Tests 06/25/19 05:48 Vital Signs Date Time Temp Pulse Resp B/P (MAP) Pulse Ox O2 Delivery O2 Flow Rate FiO2 06/25/19 06:00 97.4 62 18 141/74 (96) 99 Room Air I&O- Last 24 Hours up to 6 AM 06/25/19 06:00 Intake Total 3350 ml Output Total 0 ml Balance 3350 ml FRAN CORDOBA MD June 25, 2019 06:52
[2019-06-25 14:00] VITALS: BP 170/67
[2019-06-25] MEDS: FUROSEMIDE 20 MG TAB PO SCH (15:10)
[2019-06-25 22:00] VITALS: BP 117/67
[2019-06-26 06:00] VITALS: BP 132/64
[2019-06-26] MEDS: RIVAROXABAN 20 MG TAB (XARELTO) PO SCH (08:49)
[2019-06-26] MEDS: FUROSEMIDE 20 MG TAB PO SCH (08:49)
[2019-06-26] MEDS: MULTIVITAMINS/MINERALS THERAP 1 TAB PO SCH (08:49)
[2019-06-26] MEDS: ACETAMINOPHEN TAB 650MG DOSE (2X325MG) PO PRN (20:19)
[2019-06-27 06:00] VITALS: BP 122/62
[2019-06-27] MEDS: FUROSEMIDE 20 MG TAB PO SCH (08:57)
[2019-06-27] MEDS: RIVAROXABAN 20 MG TAB (XARELTO) PO SCH (08:57)
[2019-06-27] MEDS: MULTIVITAMINS/MINERALS THERAP 1 TAB PO SCH (08:57)
[2019-06-28 06:00] VITALS: BP 121/88
[2019-06-28] MEDS: RIVAROXABAN 20 MG TAB (XARELTO) PO SCH (08:34)
[2019-06-28] MEDS: MULTIVITAMINS/MINERALS THERAP 1 TAB PO SCH (08:34)
[2019-06-28 14:00] VITALS: BP 125/79
[2019-06-28 20:00] VITALS: BP 128/51
[2019-06-29 06:08] VITALS: BP 124/67
[2019-06-29] MEDS: MULTIVITAMINS/MINERALS THERAP 1 TAB PO SCH (09:35)
[2019-06-29] MEDS: RIVAROXABAN 20 MG TAB (XARELTO) PO SCH (09:35)
[2019-06-29 14:00] VITALS: BP 127/56
[2019-06-29] MEDS: ACETAMINOPHEN TAB 650MG DOSE (2X325MG) PO PRN (19:50)
[2019-06-30 06:00] VITALS: BP 133/77
[2019-06-30] MEDS: RIVAROXABAN 20 MG TAB (XARELTO) PO SCH (08:08)
[2019-06-30] MEDS: MULTIVITAMINS/MINERALS THERAP 1 TAB PO SCH (08:08)
[2019-06-30] MEDS: ACETAMINOPHEN TAB 650MG DOSE (2X325MG) PO PRN (20:19)
[2019-07-01 06:08] VITALS: BP 116/67
[2019-07-01] MEDS: RIVAROXABAN 20 MG TAB (XARELTO) PO SCH (08:42)
[2019-07-01] MEDS: ACETAMINOPHEN TAB 650MG DOSE (2X325MG) PO PRN (08:42)
[2019-07-01] MEDS: MULTIVITAMINS/MINERALS THERAP 1 TAB PO SCH (08:42)
[2019-07-01 14:00] VITALS: BP 117/75
[2019-07-02 06:00] VITALS: BP 124/68
[2019-07-02 07:31] LABS: HEMATOCRIT 38.8 % (42.0-52.0); HEMOGLOBIN 12.3 g/dl (13.5-17.5); MEAN CORPUSCULAR HEMOGLOBIN 30.1 pg (27.0-33.0); MEAN CORPUSCULAR HGB CONC 31.7 g/dl (32.0-36.5); MEAN CORPUSCULAR VOLUME 94.9 fl (80.0-96.0); PLATELET COUNT, AUTOMATED 267 10^3/uL (150-450); RED BLOOD COUNT 4.09 10^6/uL (4.30-6.10); WHITE BLOOD COUNT 4.9 10^3/uL (4.0-10.0)
[2019-07-02] MEDS: MULTIVITAMINS/MINERALS THERAP 1 TAB PO SCH (08:02)
[2019-07-02] MEDS: RIVAROXABAN 20 MG TAB (XARELTO) PO SCH (08:02)
[2019-07-02 09:43] LABS: BLOOD UREA NITROGEN 28 MG/DL (7-18); CALCIUM LEVEL 8.5 MG/DL (8.8-10.2); CARBON DIOXIDE LEVEL 30 MEQ/L (21-32); CHLORIDE LEVEL 110 MEQ/L (98-107); CREATININE FOR GFR 0.92 MG/DL (0.70-1.30); GLOMERULAR FILTRATION RATE > 60.0 (>42); GLUCOSE, FASTING 135 MG/DL (70-100); SODIUM LEVEL 146 MEQ/L (136-145)
[2019-07-03 06:00] VITALS: BP 131/65
[2019-07-03] MEDS: MULTIVITAMINS/MINERALS THERAP 1 TAB PO SCH (08:02)
[2019-07-03] MEDS: RIVAROXABAN 20 MG TAB (XARELTO) PO SCH (08:02)
--- NOTE | 2019-07-04 17:46 | DSES ---
DATE OF ADMISSION: 06/20/2019 DATE OF DISCHARGE: 07/03/2019 PRIMARY DISCHARGE DIAGNOSIS: 1. Dementia. 2. Mild rhabdomyolysis. 3. Inability to ambulate secondary to infection with negative workup, volume contraction, or worsening deconditioning. 4. Right pleural effusion with atelectasis versus infiltrate. 5. History of deep vein thrombosis. 6. Hypertension. 7. BPH. 8. Bladder diverticulum and bladder stones. 9. Horseshoe kidney. 10. Cystic lesion at the head of the pancreas. DISCHARGE MEDICATIONS: - multivitamin one tablet daily - Xarelto 20 mg daily HOSPITAL COURSE: This is a 74-year-old male with dementia, admitted due to an episode of fever, treated with 3 days of Augmentin with negative workup. He was initially found to have mild rhabdomyolysis, given intravenous fluids with normal creatinine. He continues to be nonverbal with advanced dementia. Does not follow commands and nonambulatory at baseline. Patient required assisted feeding and activities of daily living (ADLs). CT of the head initially showed no acute hemorrhage, acute infarct, or mass with noted diffuse volume loss. He was kept on a mechanical soft diet. Speech evaluation recommended continuation of the soft diet. Due to inability ambulate, infectious workup was done, which was negative. He was initially given 3 days of Augmentin. Blood cultures and urine cultures were negative. Chest x-ray was negative. Lactic acid and procalcitonin were all negative. Physical therapy recommended 24/7 supervision and assisted placement. Family would like him to be home with 24/7 supervision prior to placement. Due to slight fluid overload with right pleural effusion and adjacent atelectasis and infiltrate, patient was given Lasix with resolution of symptoms. He was given Augmentin, although there were no signs of infection. He was continued on rivaroxaban for his history of deep vein thrombosis (DVT). His blood pressure remained well controlled and had not been on any medications. Patient was discharged with 24/7 supervision as a recommendation. Patient is dependent on his ADLs and requires assisted feeding three times day. PHYSICAL EXAMINATION ON DISCHARGE: Temperature 98.1, pulse 64, respiratory rate 17, blood pressure 131/65, 97% on room air. GENERAL: Patient is nonverbal. He is lying on his left side in no respiratory distress. He is edentulous. LUNGS: Clear to auscultation. No wheezes, rales, or rhonchi. HEART: S1, S2, sinus rhythm. No murmurs, rubs, or gallops. ABDOMEN: Soft, nontender, nondistended. Positive bowel sounds. EXTREMITIES: He does have chronic edema, 1+ bilaterally. NEUROLOGIC: Patient is nonverbal at baseline. He remains in contracted position but has spontaneous movements. SKIN Patient has multiple scabs on bilateral upper and lower extremities. Right hip has an unstageable pressure ulcer, and he does have a scab on the forehead. LABORATORY DATA ON DISCHARGE: White count 4.9, hemoglobin 12, hematocrit 38, platelet count 267. Sodium 146, potassium 4, chloride 110, bicarbonate 30, BUN 28, creatinine 0.92, glucose 135. IMAGING STUDIES: CT of the head 06/20/2019: Generalized atrophy and concordant ventricular enlargement, unchanged. No acute intracranial abnormality. Chest x-ray on 06/20/2019: Stable chronic changes without evidence of acute infiltrate. CT abdomen and pelvis 06/21/2019: Moderate right pleural effusion with mild adjacent right base atelectasis/infiltrate. Gallbladder is filled with stones with no definite edema or surrounding free fluid. Low-density structure in the head of the pancreas, measuring 2.1 cm in diameter is unchanged. Recommend continued followup. 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 There is a renal cyst. No free air or free fluid. Multiple small bladder calculi with a large bladder diverticulum, sigmoid diverticulosis. No acute diverticulitis. No other acute findings. Microbiology: Two sets of blood cultures negative after 5 days. Urinalysis: 1+ blood, 5 WBC, 4 RBC. Negative nitrite. Negative leukocyte esterase. Clear in appearance, yellow in color. A pH of 5, specific gravity 1.023. TIME SPENT ON DISCHARGE: 30 minutes.
== END 2019-07-03 14:25 | disposition home health service (06) | DRG 884 ==
LOC: M ED 13:54 → M ED INP 17:14 → M MS5PR 18:35
PROVIDERS: ADMIT Internal Medicine; ATTEND General Practice
DX: F03.90 Unspecified dementia, unspecified severity, without behavioral disturbance, psychotic disturbance, mood disturbance, and anxiety (principal); M62.82 Rhabdomyolysis; J90 Pleural effusion, not elsewhere classified; K86.2 Cyst of pancreas; R26.2 Difficulty in walking, not elsewhere classified; L89.210 Pressure ulcer of right hip, unstageable; K57.30 Diverticulosis of large intestine without perforation or abscess without bleeding; I10 Essential (primary) hypertension; N40.0 Benign prostatic hyperplasia without lower urinary tract symptoms; N32.3 Diverticulum of bladder; Z66 Do not resuscitate; Z86.718 Personal history of other venous thrombosis and embolism; Z79.01 Long term (current) use of anticoagulants

== ENCOUNTER → 2019-10-22 | Outpatient (REF) | payer MEDICARE ==
[~2019-10-22] MED LIST changes: +VITMTA PO; +XARE20TA PO
== END ==
LOC: M LAB REF 17:23
PROVIDERS: ATTEND Physician Assistant
DX: S41.002A Unspecified open wound of left shoulder, initial encounter (principal); W18.30XA Fall on same level, unspecified, initial encounter; Y92.9 Unspecified place or not applicable

== ENCOUNTER → 2019-10-25 | Outpatient (REF) | payer MEDICARE ==
[2019-10-25 18:31] LABS: HEMATOCRIT 39.6 % (42.0-52.0); HEMOGLOBIN 12.5 g/dl (13.5-17.5); MEAN CORPUSCULAR HEMOGLOBIN 29.8 pg (27.0-33.0); MEAN CORPUSCULAR HGB CONC 31.6 g/dl (32.0-36.5); MEAN CORPUSCULAR VOLUME 94.5 fl (80.0-96.0); PLATELET COUNT, AUTOMATED 302 10^3/uL (150-450); RED BLOOD COUNT 4.19 10^6/uL (4.30-6.10); WHITE BLOOD COUNT 5.5 10^3/uL (4.0-10.0)
[2019-10-25 18:50] LABS: ALBUMIN 3.1 GM/DL (3.2-5.2); ALT/SGPT 19 U/L (12-78); BILIRUBIN,TOTAL 0.3 MG/DL (0.2-1.0); BLOOD UREA NITROGEN 14 MG/DL (7-18); CALCIUM LEVEL 8.9 MG/DL (8.8-10.2); CARBON DIOXIDE LEVEL 30 MEQ/L (21-32); CHLORIDE LEVEL 106 MEQ/L (98-107); CREATININE FOR GFR 0.81 MG/DL (0.70-1.30); GLOMERULAR FILTRATION RATE > 60.0 (>42); GLUCOSE, FASTING 107 MG/DL (70-100); POTASSIUM SERUM 4.1 MEQ/L (3.5-5.1); SODIUM LEVEL 141 MEQ/L (136-145); TOTAL PROTEIN 6.6 GM/DL (6.4-8.2)
== END ==
LOC: M LABDRWAD 17:54
PROVIDERS: ATTEND Physician Assistant
DX: D64.9 Anemia, unspecified (principal); R63.4 Abnormal weight loss; Z86.718 Personal history of other venous thrombosis and embolism

== ENCOUNTER → 2019-12-22 | Outpatient (REF) | payer MEDICARE | LOC: M WUC 13:11 | PROVIDERS: ATTEND Nurse Practitioner Family | DX: S41.002D Unspecified open wound of left shoulder, subsequent encounter (principal); W18.30XD Fall on same level, unspecified, subsequent encounter; Y92.009 Unspecified place in unspecified non-institutional (private) residence as the place of occurrence of the external cause ==